=== PATIENT | female | born 1945 | race Caucasian/White ===

== ENCOUNTER 2020-06-11 02:43 | Observation (INO) | payer MEDICARE, SELFPAY ==
[2020-06-11] VITALS (11 sets, daily range): BP systolic 84–153; BP diastolic 51–85; PULSE 78–93; RESP 12–18; TEMP 36.5–37; O2SAT 95–100; BMI 36.8
--- NOTE | 2020-06-11 | ECHO_ITS ---
Patient Info Name: Amber Ordaz Age: 75 years : 1945 Gender: Female Ht: 66 in Wt: 228 lbs BSA: 2.24 m2 HR: 88 bpm BP: 125 / 51 mmHg Technical Quality: Good Exam Date: 06/11/2020 8:13 AM Exam Location: [facility] Pulmonary Exam Room: 255 Patient Status: Outpatient Admit Date: 06/11/2020 Staff Ordering Physician: Arnoldo Aviles MD Wet Machine Cutter: Teri Martinez RDCS Attending Provider: Gurdeep Forrest PA-C Referring Physician: Traci HUA; Exam Type: CA echo doppler color flow Study Info Indications - syncope Complete two-dimensional, color flow and Doppler transthoracic echocardiogram is performed. Summary 1. Left ventricular systolic function is hyperdynamic, estimated at >70%. 2. There is no increased left ventricular wall thickness. 3. The left ventricular diastolic function is grade I diastolic dysfunction. 4. Right ventricular chamber dimension is normal. 5. Right ventricular systolic function is normal. Left Ventricle Left ventricular chamber dimension is normal. Left ventricular systolic function is hyperdynamic, estimated at >70%. There is no increased left ventricular wall thickness. Left ventricular septal wall motion is normal. The left ventricular diastolic function is grade I diastolic dysfunction. Right Ventricle Right ventricular chamber dimension is normal. Right ventricular systolic function is normal. Left Atria Left atrial chamber dimension is normal. Right Atria Right atrial chamber dimension is normal. Aortic Valve The aortic valve is trileaflet. There is no aortic valve sclerosis. There is no aortic valve stenosis. There is no aortic valve regurgitation. Pulmonic Valve The pulmonic valve is normal. There is no pulmonic valve stenosis. There is no pulmonic regurgitation. Mitral Valve The mitral valve has normal leaflets. There is no mitral valve stenosis. There is no mitral valve regurgitation. Tricuspid Valve The tricuspid valve leaflets are normal. There is no significant tricuspid valve stenosis. There is trace tricuspid valve regurgitation. Pericardium/Pleural The pericardium appears normal. There is no pericardial effusion. Inferior Vena Cava Inferior vena cava is not well visualized. Aorta The prox ascending aorta size is normal. Left Ventricular Outflow Tract Name Value Normal LVOT 2D LVOT Diameter 2.0 cm LVOT Doppler LVOT Peak Gradient 5 mmHg LVOT Mean Gradient 3 mmHg LVOT VTI 22 cm LVOT VTI/AV VTI Ratio 0.7 LVOT Stroke Volume 66 ml LVOT CO 15.3 l/min LVOT CI 6.8 l/min/m2 Pulmonic Valve Name Value Normal PV Doppler PV Peak Gradient
--- NOTE | ~2020-06-11 | CT_ITS ---
EXAMINATION: CT abd pelvis lumbar w con INDICATION: Left lower quadrant pain with diarrhea TECHNIQUE: Computed tomographic images of the abdomen, pelvis, and lumbar spine were obtained after t he administration of 100 cc of Omnipaque 350 intravenous contrast. The dose-length product (DLP) was 1361.94 mGy-cm. Automated exposure control and iterative reconstruction technique were employed. COMPARISON: 05/31/2019 FINDINGS: ABDOMEN/PELVIS: Minimal dependent atelectasis is present in the lung bases. The heart size is normal. There is a moderate size hiatal hernia. The gallbladder is surgically absent. The liver, spleen, crockett creas, and adrenal glands are normal. Cysts of the kidneys measure up to 1.6 cm on the left. 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 No patholog ically enlarged abdominal or pelvic lymph nodes are identified. There is calcified atherosclerosis of the aorta and many of the other arteries. There are multiple mildly dilated loops of small bowel in the anterior and left abdomen. Right lower quadrant small bowel loops appear to be decompressed. No d efinite focal transition is identified. There is a small volume of pelvic ascites. No free intraperit zambrano gas is identified. There are umbilical and bilateral table hernias containing fat. LUMBAR SPINE: There is severe loss of intervertebral disc space height from L1-2 through L5-S1. The v ertebral body heights are maintained. No fracture is identified. Thoracolumbar dextroscoliosis is sta ble. There is severe multilevel facet osteoarthritis. IMPRESSION: 1. Dilated small bowel loops which may reflect ileus versus partial obstruction. 2. Severe lumbar spondylosis without acute findings or significant interval change. Reviewed, dictated and finalized at location A. IMPRESSION: 1. Dilated small bowel loops which may reflect ileus versus partial obstruction . 2. Severe lumbar spondylosis without acute findings or significant interval noris nge.
--- NOTE | ~2020-06-11 | US_ITS ---
EXAMINATION: US carotid duplex BI DATE: 06/11/2020 10:38 INDICATION: Near syncope TECHNIQUE: Grayscale, color Doppler, and pulsed Doppler images of the cervical carotid arteries were obtained. The degree of vessel stenosis is placed in one of the following categories: normal, <50%, 5 0-69%, >=70% but less than near-occlusion, near-occlusion, or total occlusion. Note that percent sten osis relative to normal distal artery lumen diameter is indirectly measured from velocity measurement s as described by Kevin, et al. Radiology 2003; [id number]:[id number]. COMPARISON: 10/20/2014 FINDINGS: RIGHT: The right common carotid artery (CCA) peak systolic velocity (PSV) is 71 cm/s. The right internal car otid artery (ICA) PSV is 99 cm/s. The right ICA end-diastolic velocity (EDV) is 46 cm/s. The right IC A/CCA PSV ratio is 1.4. Grayscale and color Doppler images yield an estimate of less than 50% diamete r reduction from plaque in the ICA. The external carotid artery (ECA) PSV is 49 cm/s. There is antegr keith flow in the right vertebral artery. LEFT: The left CCA PSV is 70 cm/s. The left ICA PSV is 77 cm/s. The left ICA EDV is 31 cm/s. The left ICA/C CA PSV ratio is 1.1. Grayscale and color Doppler images yield an estimate of less than 50% diameter r eduction from plaque in the ICA. The ECA PSV is 40 cm/s. There is antegrade flow in the left vertebra l artery. IMPRESSION: 1. <50% stenosis in the right internal carotid artery. 2. <50% stenosis in the left internal carotid artery. Reviewed, dictated and finalized at location A.
--- NOTE | ~2020-06-11 | XR_ITS ---
. EXAMINATION: XR UGI water soluble w sbs DATE: 06/11/2020 15:46 INDICATION: Abdominal pain. Nausea and vomiting. TECHNIQUE: The patient drank water-soluble contrast. Fluoroscopy of the esophagus, stomach, and small bowel was performed. Fluoroscopy exposure time was 0.8 minutes. Radiographs of the abdomen were obta ined. The total number of images was 343. COMPARISON: Esophagram 05/14/2018 FINDINGS: UPPER GASTROINTESTINAL SERIES: There are changes of fundoplication. There is decreased primary and secondary esophageal peristalsis. Abnormal tertiary waves are noted. The esophagus is patulous. SMALL BOWEL SERIES: There are multiple dilated loops of small bowel without focal transition point Transit time to the co humphrey was 2.5 hours. Surgical clips in the right upper quadrant are likely from cholecystectomy. Epidur al electrodes are noted. IMPRESSION: 1. Patulous esophagus with severe dysmotility. 2. Intact fundoplication. 3. Dilated small bowel without focal transition point with passage of contrast to the colon by 2.5 ho urs, consistent with adynamic ileus. Reviewed, dictated and finalized at location A. IMPRESSION: 1. Patulous esophagus with severe dysmotility. 2. Intact fundoplication. 3. Dilated small bowel without focal transition point with passage of contrast to the colon by 2.5 hours, consistent with adynamic ileus.
--- NOTE | 2020-06-11 03:03 | ED.NAVMDI ---
HPI - Nausea/Vomiting/Diarrhea General Chief complaint: Nausea/Vomiting/Diarrhea Stated complaint: n/v/d History of Present Illness HPI Narrative: She reports severe diarrhea for the past 5 days. Associated with nausea mild abdominal pain. Additionally had a syncopal episode on Saturday and felt near syncopal today. BP per EMS was low. Related Data Home Medications Medication Instructions Recorded Confirmed C,E,zinc,copper [id number] 1 cap PO DAILY 06/11/20 [Ocuvite Adult 50 Plus] citalopram 10 mg PO DAILY 06/11/20 ferrous sulfate [iron] 325 mg PO DAILY 06/11/20 indapamide 1.25 mg PO DAILY 06/11/20 losartan 100 mg PO DAILY 06/11/20 magnesium 250 mg PO DAILY 06/11/20 meloxicam 15 mg PO DAILY 06/11/20 oxybutynin chloride 5 mg PO BID 06/11/20 pravastatin 20 mg PO DAILY 06/11/20 ropinirole 1 mg PO HS 06/11/20 trazodone 50 mg PO HS 06/11/20 verapamil 240 mg PO 06/11/20 vitamin B complex [B 1 tablet PO DAILY 06/11/20 Complex-Vitamin B12] vitamin E 200 unit PO DAILY 06/11/20 Allergies Allergy/AdvReac Type Severity Reaction Status Date / Time codeine Allergy Severe Hallucinati Verified 06/11/20 02:52 ng Review of Systems Review of Systems: All systems reviewed & are unremarkable except as noted in HPI and below Constitutional: Constitutional: Denies fever(s) and Reports weakness Cardiovascular: Cardiovascular: Denies chest pain Respiratory: Respiratory: Denies dyspnea Gastrointestinal: Gastrointestinal: Reports diarrhea, Reports nausea and Denies vomiting Genitourinary: Genitourinary: Denies hematuria and Denies dysuria Musculoskeletal: Musculoskeletal: Denies back pain Neurologic: Reports dizziness, Reports syncope and Reports weakness Hematologic/Lymphatic: Hematologic/Lymphatic: Denies easy bleeding and Denies easy bruising PMFSH Past Medical History Medical History Colitis GERD (gastroesophageal reflux disease) HTN (hypertension) with goal to be determined Hyperlipidemia Irritable bowel syndrome RLS (restless legs syndrome) Spinal cord stimulator status Surgical History Surgical History History of hernia surgery Hx laparoscopic cholecystectomy Hx of abdominal hysterectomy Family History Family History Sibling Carcinoma of colon Other Diabetes mellitus Family history of kidney disease Family history of malignant neoplasm Hypertension Social History Social History Smoking status: Never smoker Alcohol intake: current Exam Const: General: healthy appearing, no acute distress and alert Orientation/consciousness: patient oriented x3 HENMT: Mouth: Yes dry mucous membranes Neck: Neck: normal visual inspection and no lymphadenopathy Resp: Effort & Inspection: normal respiratory effort Auscultation: clear to auscultation bilaterally, no rales, no rhonchi and no wheezes Cardio: Jugular venous distension: no JVD Rate: regular rate Rhythm: regular rhythm Heart sounds: no murmurs GI: Inspection: non-distended GI Palp: Yes Soft to palpation and No Tenderness to palpation present (GI) Skin: General skin exam: normal color Neuro: General: patient oriented x3, moves all extremities, no focal motor deficits and CN's II-XI intact bilaterally Speech: normal speech Extrem: General: no edema Psych: Appearance: well kempt Affect: normal affect Course Vital Signs Vital signs: Vital Signs Temperature 36.5 C 06/11/20 02:44 Pulse Rate 83 06/11/20 02:44 Respiratory Rate 16 06/11/20 02:44 Blood Pressure 84/51 L 06/11/20 02:44 Pulse Oximetry 95 06/11/20 02:44 Temperature 36.5 C 06/11/20 02:44 Pulse Rate 83 06/11/20 04:06 Respiratory Rate 16 06/11/20 04:06 Blood Pressure 103/79 06/11/20 04:06 Pulse O
[2020-06-11] MEDS: SODIUM CHLORIDE 0.9% IV 1,000 ML 999 ML IV CONT (03:12)
[2020-06-11 03:13] LABS: Basophils Absolute Auto 0.1 K/mm3 (0.0-0.1); Basophils Percent Auto 0.5 % (0.2-1.2); Eosinophils Absolute Auto 0.2 K/mm3 (0-0.3); Eosinophils Percent Auto 1.5 % (0-4.4); Hematocrit 42.1 % (37.0-47.0); Hemoglobin 13.9 g/dL (12.0-15.0); Immature Granulocyte Absolute 0.04 K/mm3 (0.00-0.031); Immature Granulocyte Percent A 0.3 % (0-0.5); Lymphocytes Absolute Auto 1.75 K/mm3 (0.9-3.2); Mean Corpuscular Hemoglobin 28.1 pg (26-34); Mean Corpuscular Volume 85.1 fl (80-100); Mean Platelet Volume 10.6 fl (7.4-10.4); Monocytes Absolute Auto 1.4 K/mm3 (0.1-0.6); Monocytes Percent Auto 11.8 % (2.6-8.5); Neutrophils Absolute Auto 8.3 K/mm3 (1.3-6.7); Neutrophils Percent Auto 70.9 % (45.5-73.1); Platelet Count Result 268 k/mm3 (150-375); Red Blood Count 4.95 M/mm3 (4.2-5.4); Red Cell Distribution Width 13.6 % (11.5-14.5); White Blood Count 11.7 K/mm3 (4.5-10.0)
[2020-06-11 03:26] LABS: Lactic Acid Reflex 1.9 mmol/L (0.7-2.1)
[2020-06-11 03:27] LABS: Alanine Aminotransferase 15 U/L (4-35); Albumin Level 4.2 g/dL (3.5-5.1); Alkaline Phosphatase 91 U/L (38-126); Aspartate Amino Transferase 25 U/L (14-36); Bilirubin,Total 0.4 mg/dL (0.2-1.3); Blood Urea Nitrogen 15 mg/dL (7-17); Calcium 9.1 mg/dL (8.4-10.2); Carbon Dioxide 22 mmol/L (22-30); Chloride 101 mmol/L (98-107); Estimated CRCL calculation 46 ml/min; Estimated Glomerular Filt Rate 48; Glucose 154 mg/dL (65-105); Lipase 36 U/L (23-300); Potassium 3.9 mmol/L (3.4-5.0); Sodium 134 mmol/L (137-145)
[2020-06-11] MEDS: LACTATED RINGERS 1,000 ML 125 ML IV CONT ×2 (04:22→13:49)
--- NOTE | 2020-06-11 04:29 | PM.IMHP ---
H&P: HPI History of Present Illness Chief complaint: diarrhea, dehydration, near syncope Narrative: This is a pleasant 75 year old female with known history of irritable bowel syndrome, GERD, HTN and RLS who presented to the hospital with a complaint that she felt like she was going to pass out tonight while sitting on the edge of her bed. She began to feel sick 5 days ago when she became bloated, constipated and nauseated. That evening she was sitting on her toilet and blacked out and woke up on the ground. Her son helped her into bed and she did not seek medical attention. The next two days she had severe wattery diarrhea which was brown in color and she had more than 10 episodes/day. She also reports having a low grade fever of 99-100.1 F on those days. Her diarrhea seemed to improve for the next two days until yesterday evening when she had two episodes of wattery diarrhea. Associated symptoms included nausea and dry heaving. She denies any bloody stools. She does report also having left lower quadrant pain and bloating yesterday. She has a history of previous colitis. She denies any recent antibiotic use. She last had a colonoscopy 2 years ago which was normal at that time. Tonight she denies any other symptoms. Routine labs obtained in the ER demonstrated mild leukocytosis. She was initially found to be hypotensive but her blood pressure has improved with a fluid bolus in the ER. No other complaints tonight. Review of Systems Review of Systems: All systems reviewed & are unremarkable except as noted in HPI and below PMFSH Past Medical History Medical History Colitis GERD (gastroesophageal reflux disease) HTN (hypertension) with goal to be determined Hyperlipidemia Irritable bowel syndrome RLS (restless legs syndrome) Spinal cord stimulator status Surgical History Surgical History History of hernia surgery Hx laparoscopic cholecystectomy Hx of abdominal hysterectomy Family History Family History Sibling Carcinoma of colon Mother Heart disease Father Heart disease Other Diabetes mellitus Family history of kidney disease Family history of malignant neoplasm Hypertension Social History Social History Smoking status: Never smoker Alcohol intake: never Substance use: never Substance use type: does not use Meds Home Medications and Allergies Home Medications Medication Instructions Recorded Confirmed Type C,E,zinc,copper [id number] 1 cap PO DAILY 06/11/20 06/11/20 History [Ocuvite Adult 50 Plus] citalopram 10 mg PO DAILY 06/11/20 06/11/20 History ferrous sulfate [iron] 325 mg PO DAILY 06/11/20 06/11/20 History indapamide 1.25 mg PO DAILY 06/11/20 06/11/20 History losartan 100 mg PO DAILY 06/11/20 06/11/20 History magnesium 250 mg PO DAILY 06/11/20 06/11/20 History meloxicam 15 mg PO DAILY 06/11/20 06/11/20 History oxybutynin chloride 5 mg PO BID 06/11/20 06/11/20 History pravastatin 20 mg PO DAILY 06/11/20 06/11/20 History ropinirole 1 mg PO HS 06/11/20 06/11/20 History trazodone 50 mg PO HS 06/11/20 06/11/20 History verapamil 240 mg PO DAILY 06/11/20 06/11/20 History vitamin B complex [B 1 tablet PO DAILY 06/11/20 06/11/20 History Complex-Vitamin B12] vitamin E 200 unit PO DAILY 06/11/20 06/11/20 History Allergies Allergy/AdvReac Type Severity Reaction Status Date / Time codeine Allergy Severe Hallucinati Verified 06/11/20 02:52 ng Vital Signs Vital Signs - 24 hr 06/11/20 02:44 06/11/20 04:06 Temperature 36.5 C Pulse Rate 83 83 Respiratory Rate 16 16 Blood Pressure 84/51 L 103/79 Pulse Oximetry 95 98 Exam Const: General: cooperative, alert and awake Nutritional Appearance: obese morbidly obese Orientation/consciousness: patien
[2020-06-11] MEDS: LOPERAMIDE HCL 2 MG CAPSULE 4 MG PO (05:13)
--- NOTE | 2020-06-11 05:23 | ADMGEN ---
This patient, Amber Ordaz, was admitted to [address] [facility]- @ 5210. Patient/family oriented to hospital policies and general routines including ID bracelet, bed and alarms, visiting hours, pain management, procedures, bathroom and other care routines, personal items, smoking policy, room service/diet, and visiting hours. Valuables list has been completed. Information on how to activate the Rapid Response Team has been discussed. Patient/Family are encouraged to report perceived risks to care and to ask questions if they do not understand what they are told or what they should do.
[2020-06-11 06:23] LABS: Add Urine Microscopic? YES; Appearance Urine Clear (Clear); Bilirubin Urine Negative (Negative); Blood Urine Negative (Negative); Color Urine Yellow (Yellow); Glucose Urine UA Negative (Negative); Hyaline Casts Urine 20-29 /lpf; Ketones Urine Negative (Negative); Leukocyte Esterase Ur Trace LEU/UL (Negative); Mucus Urine Rare /lpf; Nitrate Urine Negative (Negative); Protein Urine Negative (Negative); RBC Urine 0-2 /hpf (0-2); Specific Grav Ur 1.012 (1.001-1.035); Squamous Epithelial Cell Urine Few /hpf (Few); Urobilinogen Urine Negative mg/dL (<2.0); WBC Urine 0-3 /hpf
[2020-06-11] MEDS: PRAVASTATIN SODIUM 20 MG TABLET PO (09:12)
[2020-06-11] MEDS: CITALOPRAM HYDROBROMIDE 10 MG TABLET PO (09:12)
[2020-06-11] MEDS: FERROUS SULFATE 324 MG TABLET PO (09:12)
[2020-06-11] MEDS: VITAMIN B COMPLEX CAPSULE 1 CAP PO (09:12)
[2020-06-11] MEDS: OPTI-GEN TAB 1 TABLET PO (09:12)
[2020-06-11] MEDS: VERAPAMIL HCL ER 240 MG TABLET.ER PO (09:12)
[2020-06-11] MEDS: LOSARTAN POTASSIUM 100 MG TABLET PO (09:12)
[2020-06-11] MEDS: OXYBUTYNIN CHLORIDE 5 MG TABLET PO (09:12)
[2020-06-11] MEDS: VITAMIN E 100 UNIT CAPSULE 200 UNIT PO (09:13)
[2020-06-11] MEDS: INDAPAMIDE 1.25 MG TABLET PO (09:30)
--- NOTE | 2020-06-11 11:59 | PM.IMPN ---
Progress Note: A&P Assessment and Plan (1) Near syncope: Code(s): R55 - Syncope and collapse Status: Acute Assessment and Plan: Near Syncope and recent syncopal event may be secondary to hypotension. TSH 6.41, T4 pending. Carotid doppler unremarkable. Echo pending. BP has improved and patient feels slightly better today. Tele thus far shows sinus rhythm, episode of sinus tachycardia >120, artifact note; no other ectopy; asymptomatic. Continue IVF Fall precautions incident commander closely (2) Partial small bowel obstruction: Code(s): K56.600 - Partial intestinal obstruction, unspecified as to cause Status: Acute Assessment and Plan: partial SBO vs ileus as evident on CT abd/pelvis this morning. Patient states she is still nausea, and no BMs or flatus since yesterday morning, some left abdominal pain. She has had multiple abdominal surgeries in the past (lap makenna, hernia repair in 1980s). Will order UGI water soluble sbs Pending results, consider NGT and consult to General Surgery for further evaluation/management NPO status for now Monitor If return of bowel function, will slowly advance her diet (3) Diarrhea: Code(s): R19.7 - Diarrhea, unspecified Status: Acute Assessment and Plan: The patient was treated in the ER with imodium. Possibly related to ileus vs partial sbo. see above a/p (4) Hypotension: Qualifiers: Hypotension type: unspecified hypotension type Qualified Code(s): I95.9 - Hypotension, unspecified Code(s): I95.9 - Hypotension, unspecified Status: Resolved Assessment and Plan: This has improved with IVF Continue IV fluids while NPO. monitor blood pressure closely. (5) Leukocytosis: Qualifiers: Leukocytosis type: unspecified Qualified Code(s): D72.829 - Elevated white blood cell count, unspecified Code(s): D72.829 - Elevated white blood cell count, unspecified Status: Acute Assessment and Plan: Mildly elevated. Likely reactive. No evidence of acute infection at this time; afebrile Monitor closely CBC tomorrow (6) Dehydration: Code(s): E86.0 - Dehydration Status: Acute Assessment and Plan: Lab suggesting dehydration. Patient has had several recent episodes of diarrhea, n/v. Likely contributing to hypotension Continue IV fluid hydration. Monitor urine output and vital signs. (7) GERD (gastroesophageal reflux disease): Qualifiers: Esophagitis presence: esophagitis presence not specified Qualified Code(s): K21.9 - Gastro-esophageal reflux disease without esophagitis Code(s): K21.9 - Gastro-esophageal reflux disease without esophagitis Status: Acute Assessment and Plan: No acute issues at this time Monitor (8) RLS (restless legs syndrome): Code(s): G25.81 - Restless legs syndrome Status: Chronic Assessment and Plan: Resume ropinirole once off NPO status (9) Hyperlipidemia: Qualifiers: Hyperlipidemia type: unspecified Qualified Code(s): E78.5 - Hyperlipidemia, unspecified Code(s): E78.5 - Hyperlipidemia, unspecified Status: Chronic Assessment and Plan: Resume pravastatin once off NPO status (10) HTN (hypertension) with goal to be determined: Code(s): I10 - Essential (primary) hypertension Status: Chronic Assessment and Plan: BP has improved with IVF Monitor blood pressure. Hold home antihypertensives for now as she has been hypotensive. Likely resume home meds when BP continues to improve and off NPO sta
[2020-06-11 12:23] LABS: Free T4 Free Thyroxine Reflex 1.13 ng/dL (0.78-2.19)
[2020-06-11 13:16] LABS: Total Triiodothyronine (T3) 1.09 NG/ML (0.97-1.69)
[2020-06-12] VITALS: PULSE 74
[2020-06-12 04:00] VITALS: PULSE 62
[2020-06-12 05:18] LABS: Basophils Percent Auto 0.6 % (0.2-1.2); Eosinophils Absolute Auto 0.3 K/mm3 (0-0.3); Eosinophils Percent Auto 5.1 % (0-4.4); Hematocrit 36.6 % (37.0-47.0); Immature Granulocyte Absolute 0.01 K/mm3 (0.00-0.031); Immature Granulocyte Percent A 0.2 % (0-0.5); Lymphocytes Percent Auto 37.4 % (18.3-44.2); Mean Corpuscular HGB Conc 32.8 g/dl (32-36); Mean Corpuscular Hemoglobin 28.1 pg (26-34); Mean Corpuscular Volume 85.7 fl (80-100); Mean Platelet Volume 10.3 fl (7.4-10.4); Monocytes Absolute Auto 0.6 K/mm3 (0.1-0.6); Neutrophils Absolute Auto 2.3 K/mm3 (1.3-6.7); Neutrophils Percent Auto 45.7 % (45.5-73.1); Platelet Count Result 241 k/mm3 (150-375); Red Blood Count 4.27 M/mm3 (4.2-5.4); Red Cell Distribution Width 13.8 % (11.5-14.5); White Blood Count 5.1 K/mm3 (4.5-10.0)
[2020-06-12 05:35] LABS: Blood Urea Nitrogen 11 mg/dL (7-17); Calcium 8.9 mg/dL (8.4-10.2); Carbon Dioxide 25 mmol/L (22-30); Chloride 107 mmol/L (98-107); Estimated CRCL calculation 73 ml/min; Estimated Glomerular Filt Rate > 60; Glucose 91 mg/dL (65-105); Magnesium 1.6 mg/dL (1.6-2.3); Potassium 3.9 mmol/L (3.4-5.0); Sodium 137 mmol/L (137-145)
[2020-06-12 05:47] VITALS: BP 127/61; PULSE 64; RESP 12; TEMP 36.9; O2SAT 95
[2020-06-12] MEDS: LACTATED RINGERS 1,000 ML 75 ML IV CONT (05:50)
[2020-06-12 08:00] VITALS: PULSE 78
--- NOTE | 2020-06-12 08:34 | PM.IMPN ---
Progress Note: A&P Assessment and Plan (1) Adynamic ileus: Code(s): K56.0 - Paralytic ileus Status: Acute Assessment and Plan: Possibly medication induced. UGI SBS yesterday showed adynamic ileus; patulous esophagus noted - patient follows Dr. Jeff and has what sounds like balloon dilations in the past. partial SBO vs ileus as evident on CT abd/pelvis yesterday morning. No n/v today; abdominal pain has improved this morning; she has had BMs last night from UGI series. She is willing to advance her diet today Slowly advance diet. will start with CLD this morning and afternoon; if tolerating, then advance to FLD this evening. If pain, n/v worsen, then will hold diet and repeat imaging Consider General Surgery consult if not improving/symptoms worsen Will hold verapamil, oxybutinin. Will refrain from imodium as well Monitor Encourage ambulation, walk the halls (2) Near syncope: Code(s): R55 - Syncope and collapse Status: Acute Assessment and Plan: Near Syncope and recent syncopal event may be secondary to hypotension. TSH 6.41, T4 and T3 WNL. Carotid doppler unremarkable. Echo grossly unremarkable for etiology of symptoms. BP has improved and patient feels slightly better again today. Tele thus far shows sinus rhythm, episodes of sinus tachycardia >120, artifact noted; no other ectopy; asymptomatic. Most likely due to hypotension from volume depletion Will stop IVF Fall precautions D/c tele (3) Diarrhea: Code(s): R19.7 - Diarrhea, unspecified Status: Acute Assessment and Plan: The patient was treated in the ER with imodium, possibly causing ileus? see above a/p (4) Hypotension: Qualifiers: Hypotension type: unspecified hypotension type Qualified Code(s): I95.9 - Hypotension, unspecified Code(s): I95.9 - Hypotension, unspecified Status: Resolved Assessment and Plan: This has improved with IVF d/c IVF monitor blood pressure closely. (5) Leukocytosis: Qualifiers: Leukocytosis type: unspecified Qualified Code(s): D72.829 - Elevated white blood cell count, unspecified Code(s): D72.829 - Elevated white blood cell count, unspecified Status: Resolved Assessment and Plan: Resolved. Likely reactive. No evidence of acute infection at this time; afebrile Monitor closely CBC tomorrow (6) Dehydration: Code(s): E86.0 - Dehydration Status: Acute Assessment and Plan: Lab suggesting dehydration. Patient has had several recent episodes of diarrhea, n/v. Likely contributing to hypotension Encourage PO intake Monitor urine output and vital signs. (7) GERD (gastroesophageal reflux disease): Qualifiers: Esophagitis presence: esophagitis presence not specified Qualified Code(s): K21.9 - Gastro-esophageal reflux disease without esophagitis Code(s): K21.9 - Gastro-esophageal reflux disease without esophagitis Status: Acute Assessment and Plan: No acute issues at this time Monitor (8) RLS (restless legs syndrome): Code(s): G25.81 - Restless legs syndrome Status: Chronic Assessment and Plan: Resume ropinirole (9) Hyperlipidemia: Qualifiers: Hyperlipidemia type: unspecified Qualified Code(s): E78.5 - Hyperlipidemia, unspecified Code(s): E78.5 - Hyperlipidemia, unspecified Status: Chronic Assessment and Plan: Resume pravastatin (10) HTN (hypertension) with goal to be determined: Code(s): I10 - Essential (primary) hypertension Status: Chronic Assessment and
[2020-06-12] MEDS: FERROUS SULFATE 324 MG TABLET PO (09:06)
[2020-06-12] MEDS: CITALOPRAM HYDROBROMIDE 10 MG TABLET PO (09:06)
[2020-06-12] MEDS: INDAPAMIDE 1.25 MG TABLET PO (09:07)
[2020-06-12] MEDS: OPTI-GEN TAB 1 TABLET PO (09:07)
[2020-06-12] MEDS: LOSARTAN POTASSIUM 100 MG TABLET PO (09:07)
[2020-06-12] MEDS: VITAMIN B COMPLEX CAPSULE 1 CAP PO (09:08)
[2020-06-12] MEDS: VITAMIN E 100 UNIT CAPSULE 200 UNIT PO (09:08)
[2020-06-12] MEDS: PRAVASTATIN SODIUM 20 MG TABLET PO (09:08)
[2020-06-12] MEDS: ACETAMINOPHEN 325 MG TABLET 650 MG PO (10:42)
--- NOTE | 2020-06-12 12:46 | PCPTNOTE ---
PT/OR orders received for this patient....evaluated by OT and found to be INDEP with functional activities...spoke with MORALES Forrest, and received PT D/C orders
[2020-06-12 14:00] VITALS: BP 125/63; PULSE 76; RESP 18; TEMP 36.1; O2SAT 99
[2020-06-12 20:27] VITALS: BP 141/77; PULSE 69; RESP 12; TEMP 36.6; O2SAT 98
[2020-06-12] MEDS: rOPINIRole HCL 1 MG TABLET PO (20:28)
[2020-06-12] MEDS: traZODone HCL 50 MG TABLET PO (22:40)
[2020-06-13] MEDS: ACETAMINOPHEN 325 MG TABLET 650 MG PO ×2 (05:09→12:56)
[2020-06-13 05:28] VITALS: BP 140/67; PULSE 64; RESP 12; TEMP 36.7; O2SAT 100
[2020-06-13 05:47] LABS: Blood Urea Nitrogen 9 mg/dL (7-17); Calcium 8.9 mg/dL (8.4-10.2); Carbon Dioxide 26 mmol/L (22-30); Chloride 106 mmol/L (98-107); Estimated CRCL calculation 73 ml/min; Estimated Glomerular Filt Rate > 60; Glucose 93 mg/dL (65-105); Magnesium 1.6 mg/dL (1.6-2.3); Potassium 4.1 mmol/L (3.4-5.0); Sodium 138 mmol/L (137-145)
[2020-06-13] MEDS: CITALOPRAM HYDROBROMIDE 10 MG TABLET PO (08:18)
[2020-06-13] MEDS: LOSARTAN POTASSIUM 100 MG TABLET PO (08:19)
[2020-06-13] MEDS: INDAPAMIDE 1.25 MG TABLET PO (08:19)
[2020-06-13] MEDS: OPTI-GEN TAB 1 TABLET PO (08:19)
[2020-06-13] MEDS: FERROUS SULFATE 324 MG TABLET PO (08:19)
[2020-06-13] MEDS: VITAMIN B COMPLEX CAPSULE 1 CAP PO (08:19)
[2020-06-13] MEDS: PRAVASTATIN SODIUM 20 MG TABLET PO (08:19)
[2020-06-13] MEDS: VITAMIN E 100 UNIT CAPSULE 200 UNIT PO (08:19)
[2020-06-13 14:00] VITALS: BP 124/64; PULSE 63; RESP 16; TEMP 36.9; O2SAT 100
--- NOTE | 2020-06-13 14:32 | PM.DS ---
DS: Admitting Diagnosis Admitting Diagnosis Admitting Diagnosis: Syncope and collapse DS: Discharge Diagnosis Discharge Diagnosis (1) Adynamic ileus: Code(s): K56.0 - Paralytic ileus Status: Acute Assessment and Plan: CT a/p showed dilated small bowel loops which may reflect ileus vs partial obstruction. She had a UGI series on 06/11 which showed adynamic ileus; patulous esophagus noted, for which patient follows with Dr. Jeff and has had balloon dilations in the past. Etiology is unclear but medication induced ileus is a possibility. She received immodium in the ED and she is on verapamil and oxybutynin, all potential contributing factors. Her verapamil and oxybutynin were held during her stay and she will continue to hold until PCP follow up. No further immodium was given. She was passing gas and having bowel movements. She was able to advance from CLD to soft diet and tolerated well. She had no further nausea or vomiting. She was encouraged to ambulate and walk the halls. (2) Near syncope: Code(s): R55 - Syncope and collapse Status: Acute Assessment and Plan: Near syncope and recent syncopal event may be secondary to hypotension. TSH 6.41, T4 and T3 WNL. Carotid doppler unremarkable. Echo grossly unremarkable for etiology of symptoms. BP has improved and patientfelt better. Telemetry was reviewed and showed sinus rhythm, episodes of sinus tachycardia >120, artifact noted; no other ectopy; and she remained asymptomatic.. Most likely due to hypotension from volume depletion. She was rehydrated with IV fluids and placed on fall precautions. We discussed monitoring her BP at home and using precautions to avoid falls. (3) Diarrhea: Code(s): R19.7 - Diarrhea, unspecified Status: Acute Assessment and Plan: Resolved. She was given one time dose of immodium as noted above which was then avoided due to ileus. (4) Hypotension: Qualifiers: Hypotension type: unspecified hypotension type Qualified Code(s): I95.9 - Hypotension, unspecified Code(s): I95.9 - Hypotension, unspecified Status: Resolved Assessment and Plan: This improved with IVF. Likely etiology for syncope as above. Recommend monitoring her BP at home. Verapamil was held. (5) Leukocytosis: Qualifiers: Leukocytosis type: unspecified Qualified Code(s): D72.829 - Elevated white blood cell count, unspecified Code(s): D72.829 - Elevated white blood cell count, unspecified Status: Resolved Assessment and Plan: Resolved, likely reactive. No evidence of acute infection and she remained afebrile. (6) Dehydration: Code(s): E86.0 - Dehydration Status: Acute Assessment and Plan: Labs suggesting dehydration, possibly due to recent episodes of diarrhea, nausea, and vomiting. Likely contributing to hypotension. She was rehydrated with IV fluids and showed improvement. (7) GERD (gastroesophageal reflux disease): Qualifiers: Esophagitis presence: esophagitis presence not specified Qualified Code(s): K21.9 - Gastro-esophageal reflux disease without esophagitis Code(s): K21.9 - Gastro-esophageal reflux disease without esophagitis Status: Acute Assessment and Plan: No acute issues. (8) RLS (restless legs syndrome): Code(s): G25.81 - Restless legs syndrome Status: Chronic Assessment and Plan: Stable. Continue ropinirole (9) Hyperlipidemia: Qualifiers: Hyperlipidemia type: unspecified Qualified Code(s): E78.5 - Hyperlipidemia, unspecified Code(s): E78.5 - Hyperlipidemia, unspecified Status: Chronic Assessment and Plan: Continue pravastatin (10) HTN (hypertension) with goal to be determined: Code(s): I10 - Essential (primary) hypertension Status: Chronic Assessment and Plan: History of HTN on several antihyperten
== END 2020-06-13 14:55 | disposition home or self-care (01) ==
LOC: ANHED 04:01 → ANH2MED 04:10
PROVIDERS: Physician Assistant; Admitting Provider Family Medicine; Emergency Provider Emergency Medicine; PCP Family Medicine; Visit Provider Physician Assistant
DX: K56.0 Paralytic ileus (principal); R55 Syncope and collapse; I95.9 Hypotension, unspecified; D72.829 Elevated white blood cell count, unspecified; E86.0 Dehydration; K21.9 Gastro-esophageal reflux disease without esophagitis; G25.81 Restless legs syndrome; E78.5 Hyperlipidemia, unspecified; I10 Essential (primary) hypertension; K58.9 Irritable bowel syndrome, unspecified
CPT/HCPCS: 36415; 72132; 74177; 74240; 74248; 80048; 80053; 81001; 83605; 83690; 83735; 84439; 84443; 84480; 85025; 93306; 93880; 96361; 96365; 96375; 97165; 97535; 99285; A9270; G0378; J0131; J2060; J7030; J7120; Q9967

== ENCOUNTER 2020-09-22 09:31 | Outpatient (CLI) | payer MEDICARE, SELFPAY ==
--- NOTE | ~2020-09-22 | MM_ITS ---
EXAMINATION: MM screening [place] BI w carolyn HISTORY: Screening mammogram TECHNIQUE: Craniocaudal and mediolateral oblique 3-D tomosynthesis images were obtained and synthetic 2-D images were generated. CAD analysis was submitted and interpreted. COMPARISON: 05/08/2019, 05/06/2018, 04/19/2016 bilateral digital screening mammogram examinations BREAST PARENCHYMAL COMPOSITION: The breasts are almost entirely fatty. FINDINGS: There is no evidence of suspicious mass, calcification, or architectural distortion to sugg est malignancy in either breast. There has been no suspicious interval change. IMPRESSION: 1. No mammographic evidence of malignancy. 2. Recommend routine screening mammography in one year. BI-RADS Category 1: Negative Reviewed, dictated and finalized at location A.
== END 2020-09-22 09:32 | disposition home or self-care (01) ==
LOC: ANHIMG 09:33
PROVIDERS: PCP Family Medicine; Visit Provider Family Medicine
DX: Z12.31 Encounter for screening mammogram for malignant neoplasm of breast (principal)
CPT/HCPCS: 77063; 77067

== ENCOUNTER → 2021-08-16 12:37 | Outpatient (CLI) | payer MEDICARE, SELFPAY ==
--- NOTE | ~2021-08-16 | DEXA_ITS ---
Bone Density Report Name: Amber Ordaz Age: 76 Sex: Female Ethnicity: White Date of : 1945 Indication: postmenopausal; screening for osteoporosis; parental hip fracture; height loss; inflammatory bowel disease; hysterectomy; Referring Provider: Steff Coleman Study: Bone densitometry was performed. Exam Date: August 16, 2021 Accession number: [id number] There is hypertrophic degenerative change of the lumbar spine, which results in higher than expected spine bone mineral density measurements. These spine BMD and T score and Z score measurements are not reflective of the patient's true general bone mineral density. Bone Density: Region BMD T-score Z-score Classification AP Spine (L2, L3, L4) 1.243 1.5 4.1 Normal Femoral Neck (Left) 0.583 -2.4 -0.3 Osteopenia Total Hip (Left) 0.927 -0.1 1.7 Normal Femoral Neck (Right) 0.654 -1.8 0.4 Osteopenia Total Hip (Right) 0.868 -0.6 1.3 Normal Total Hip Mean 0.898 -0.4 1.5 Normal World Health Organization criteria for BMD impression classify patients as: Normal (T-score at or above -1.0), Osteopenia (T-score between -1.0 and -2.5), or Osteoporosis (T-score at or below -2.5). 10-year Fracture Risk(1): Major Osteoporotic Fracture 26% Hip Fracture 16% Reported Risk Factors: [place] (), Neck BMD=0.583, BMI=40.8, parental fracture (1) FRAX(R) Version 3.08. Fracture probability calculated for an untreated patient. Fracture probability may be lower if the patient has received treatment. Previous Exams: Region Exam Age BMD T-score BMD Change BMD Change Date g/cm2 vs Baseline vs Previous AP Spine(L2, L3, L4) 08/16/2021 76 1.243 1.5 0.213 0.118* 05/29/2018 73 1.124 0.4 0.094 0.161* 08/09/2010 65 0.964 -1.0 -0.067 -0.125* 01/01/2007 61 1.089 0.1 0.059 0.059 10/13/2003 58 1.030 -0.4 Total Hip(Left) 08/16/2021 76 0.927 -0.1 -0.042 0.047* 05/29/2018 73 0.880 -0.5 -0.089 -0.131* 08/09/2010 65 1.012 0.6 0.042 -0.081* 01/01/2007 61 1.093 1.2 0.123 0.123 10/13/2003 58 0.969 0.2 Total Hip(Right) 08/16/2021 76 0.868 -0.6 -0.103 -0.056* 05/29/2018 73 0.924 -0.1 -0.047 -0.042* 08/09/2010 65 0.966 0.2 -0.005 -0.117* 01/01/2007 61 1.083 1.2 0.112 0.112 10/13/2003 58 0.971 0.2 *Denotes significance at 95% confidence level, LSC for AP Spine = 0
== END ==
PROVIDERS: PCP Family Medicine; Visit Provider Physician Assistant
DX: Z78.0 Asymptomatic menopausal state (principal); M85.851 Other specified disorders of bone density and structure, right thigh; M85.852 Other specified disorders of bone density and structure, left thigh
CPT/HCPCS: 77080

== ENCOUNTER 2021-10-24 14:38 | Outpatient (CLI) | payer MEDICARE, SELFPAY ==
--- NOTE | ~2021-10-24 | MM_ITS ---
EXAMINATION: MM screening [place] BI w carolyn HISTORY: Screening mammogram TECHNIQUE: Craniocaudal and mediolateral oblique 3-D tomosynthesis images were obtained and synthetic 2-D images were generated. CAD analysis was submitted and interpreted. COMPARISON: 09/22/2020, 05/08/2019, 05/06/2018 bilateral screening mammogram examinations BREAST PARENCHYMAL COMPOSITION: The breasts are almost entirely fatty. FINDINGS: There is no evidence of suspicious mass, calcification, or architectural distortion to sugg est malignancy in either breast. There has been no suspicious interval change. IMPRESSION: 1. No mammographic evidence of malignancy. 2. Recommend routine screening mammography in one year. BI-RADS Category 1: Negative Reviewed, dictated and finalized at location A. DDED SYSTEMS ENGINEER
== END 2021-10-24 14:39 | disposition home or self-care (01) ==
LOC: ANHIMG 14:40
PROVIDERS: PCP Family Medicine; Visit Provider Physician Assistant
DX: Z12.31 Encounter for screening mammogram for malignant neoplasm of breast (principal)
CPT/HCPCS: 77063; 77067

== ENCOUNTER 2023-07-08 12:47 | Outpatient (CLI) | payer MEDICARE, SELFPAY ==
--- NOTE | ~2023-07-08 | CT_ITS ---
EXAMINATION: CT cervical spine wo con DATE: 07/08/2023 13:01 INDICATION: Cervical radiculopathy. TECHNIQUE: Computed tomography (CT) of the cervical spine was performed without intravenous contrast. Automated exposure control and iterative reconstruction technique were employed. The dose-length pro duct was 284.23 mGy-cm. COMPARISON: None FINDINGS: There is 6 degrees dextrocurvature of cervical spine. There is 2 mm anterolisthesis of C3 o n C4 and C4 on C5. Vertebral body heights are normal. There is severely decreased disc height from C3 -C4 through C6-C7. The following disc levels are specifically discussed: C2-C3: There is no uncovertebral joint osteoarthritis. There is mild bilateral facet joint osteoarthr itis. There is no neural foraminal stenosis. There is no central canal stenosis. C3-C4: There is mild right and severe left uncovertebral joint osteoarthritis. There is moderate righ t and severe left facet joint osteoarthritis. There is mild left neural foraminal stenosis. There is mild central canal stenosis. C4-C5: There is severe bilateral uncovertebral joint osteoarthritis. There is mild right and severe l eft facet joint osteoarthritis. There is mild bilateral neural foraminal stenosis. There is mild cent ral canal stenosis. C5-C6: There is severe bilateral uncovertebral joint osteoarthritis. There is mild bilateral facet ming int osteoarthritis. There is mild bilateral neural foraminal stenosis. There is mild central canal st enosis. C6-C7: There is severe bilateral uncovertebral joint osteoarthritis. There is severe bilateral facet joint osteoarthritis. There is mild bilateral neural foraminal stenosis. There is mild central canal stenosis. C7-T1: There is no uncovertebral joint osteoarthritis. There is severe bilateral facet joint osteoart hritis. There is mild bilateral neural foraminal stenosis. There is no central canal stenosis. IMPRESSION: 1. Severe cervical spondylosis. Reviewed, dictated and finalized at location A.
== END 2023-07-08 12:48 ==
LOC: MICIMG 12:49
PROVIDERS: PCP Family Medicine; Visit Provider Physical Medicine & Rehabilitation Pain Medicine
DX: M54.12 Radiculopathy, cervical region (principal); M43.02 Spondylolysis, cervical region
CPT/HCPCS: 72125

== ENCOUNTER 2023-09-04 13:40 | Emergency (ER) | payer MEDICARE, SELFPAY ==
--- NOTE | ~2023-09-04 | XR_ITS ---
EXAMINATION: XR ankle LT min 3V DATE: 09/04/2023 14:23 INDICATION: Left ankle pain. Fall. TECHNIQUE: 4 views of left ankle were obtained. COMPARISON: None. FINDINGS: Bone alignment is normal. No fracture. There is mild midfoot osteoarthrosis. There is heter otopic ossification distal to lateral malleolus. There are enthesophytes at the posterior and plantar aspects of calcaneal tuberosity. Ankle soft tissue swelling is noted. IMPRESSION: 1. No acute fracture. Reviewed, dictated and finalized at location A. IMPRESSION: 1. No acute fracture.
--- NOTE | ~2023-09-04 | XR_ITS ---
EXAMINATION: XR wrist LT min 3V DATE: 09/04/2023 14:24 INDICATION: Left wrist pain. Fall. TECHNIQUE: 4 views of left wrist were obtained. COMPARISON: None. FINDINGS: Bone alignment is normal. No fracture. There is mild osteoarthritis of first carpometacarpa l joint. IMPRESSION: 1. Mild osteoarthritis of first carpometacarpal joint. Reviewed, dictated and finalized at location A.
[2023-09-04 13:49] VITALS: BP 148/89; PULSE 87; RESP 18; TEMP 36.2; O2SAT 96
--- NOTE | 2023-09-04 14:39 | ED.LOWEXIN ---
HPI - Extremity Injury (Lower) General Chief Complaint: Extremity Injury, Lower Stated Complaint: Lt Ankle,Foot,and Wrist Pain Due To Fall Time Seen by Provider: 09/04/23 14:07 Source: patient, family (Son) and RN notes reviewed Mode of arrival: ambulatory (With cane) Limitations: no limitations History of Present Illness HPI Narrative: Patient presents today with left ankle and wrist pain after she fell yesterday getting into her car with some groceries. Denies numbness or tingling in her extremities. She is up-to-date on her tetanus vaccine. She currently rates her pain 06/03 and has been taking Tylenol with some relief. Related Data Home Medications Medication Instructions Recorded Confirmed vit C,E,zinc,copper-[id number] 250 1 cap PO DAILY 06/11/20 09/04/23 mg-lutein 5 mg-zeaxanthin 1 mg capsule (Ocuvite Adult 50 Plus) vitamin B complex (B 1 tablet PO DAILY 06/11/20 09/04/23 Complex-Vitamin B12 tablet) cholecalciferol (vitamin D3) 50 50 mcg PO DAILY 02/07/23 09/04/23 mcg (2,000 unit) capsule citalopram 10 mg tablet 20 mg PO DAILY 06/19/23 09/04/23 Allergies Allergy/AdvReac Type Severity Reaction Status Date / Time codeine Allergy Severe Hallucinati Verified 09/04/23 13:44 ng Review of Systems Review of Systems: CONSTITUTIONAL: Denies body aches, fever, chills, or sweats. EYES: Denies visual changes, redness, or discharge. ENT: Denies rhinorrhea, congestion, sore throat, or otalgia. CARDIOVASCULAR: Denies chest pain, palpitations, or edema. RESPIRATORY: Denies cough or dyspnea. GASTROINTESTINAL: Denies abdominal pain, nausea, vomiting, or diarrhea. GENITOURINARY: Denies dysuria or hematuria. SKIN: Denies rash, itching, or wounds.+ abrasion to left wrist MUSCULOSKELETAL: Denies back pain, or myalgia.+ left ankle and wrist pain NEUROLOGIC: Denies headache, numbness, tingling, or weakness. PSYCH: Denies depression or anxiety. [facility] Past Medical History Medical History Asthma Atherosclerosis of aorta Eczema Generalized osteoarthrosis, involving multiple sites GERD (gastroesophageal reflux disease) Hypertension Major depressive disorder, recurrent, in partial remission Occlusion and stenosis of bilateral carotid arteries Other intervertebral disc degeneration, lumbar region Pure hypercholesterolemia, unspecified RLS (restless legs syndrome) Urge incontinence Surgical History Surgical History H/O: hysterectomy 1978 History of breast biopsy 1985 History of hernia surgery 1980 History of lumbar discectomy 05/2008 History of [place] fundoplication laparoscopic hiatal hernia repair and fundoplication 02/2018 History of shoulder surgery right 11/2010 History of total left knee replacement 11/21/2018 History of total right knee replacement 01/2012 Hx laparoscopic cholecystectomy 08/2005 Hx of spinal surgery spinal leak repair 05/2008 Family History Family History Sibling Carcinoma of colon Mother Heart disease Father Heart disease Other Diabetes mellitus Family history of kidney disease Family history of malignant neoplasm Hypertension Social History Social History Smoking status: Never smoker Alcohol intake: never Substance use: never Substance use type: does not use Lack of Transportation: No Lack of Food: Never True Current Housing: I Have Housing Concerned About Future Housing: No Difficulty Paying Gas/Electric Bills: No Difficulty Paying for Meds: No Currently Unemployed: No Education: High School Diploma/GED Living arrangements: with family Occupation/Education: retired Gender identity (if verbalized by the patient): Female Sexual Orientation (if Verbalized by the Patient): Adi
== END 2023-09-04 14:45 | disposition home or self-care (01) ==
PROVIDERS: Emergency Provider Nurse Practitioner; PCP Family Medicine
DX: S93.402A Sprain of unspecified ligament of left ankle, initial encounter (principal); S63.502A Unspecified sprain of left wrist, initial encounter; S61.512A Laceration without foreign body of left wrist, initial encounter; I10 Essential (primary) hypertension; Z79.899 Other long term (current) drug therapy; W19.XXXA Unspecified fall, initial encounter
CPT/HCPCS: 73110; 73610; 99214; G0463

== ENCOUNTER 2023-09-20 11:08 | Outpatient (CLI) | payer MEDICARE, SELFPAY ==
--- NOTE | ~2023-09-20 | MM_ITS ---
EXAMINATION: MM diagnostic clinton LT w carolyn HISTORY: Lateral left breast pain TECHNIQUE: ML, MLO and CC 3-D tomosynthesis images of the left breast were performed and synthetic 2- D images were generated. CAD analysis was submitted and interpreted. COMPARISON: 10/24/2021, 09/22/2020, 05/08/2019 bilateral screening mammogram examinations BREAST PARENCHYMAL COMPOSITION: The breasts are almost entirely fatty. FINDINGS: No suspicious mass or architectural distortion, malignant calcification, skin thickening or retraction or significant new or developing density is detected. IMPRESSION: 1. No mammographic evidence of malignancy of the left breast 2. Routine annual mammographic screening is recommended BI-RADS Category 1: Negative Reviewed, dictated and finalized at location A.
== END 2023-09-20 11:09 | disposition home or self-care (01) ==
LOC: ANHIMG 11:09
PROVIDERS: PCP Family Medicine; Visit Provider Family Medicine
DX: N64.4 Mastodynia (principal)
CPT/HCPCS: 77061; 77065; G0279

== ENCOUNTER 2023-10-04 12:59 | Observation (INO) | payer MEDICARE, SELFPAY ==
[2023-10-04] VITALS (13 sets, daily range): BP systolic 110–158; BP diastolic 56–86; PULSE 60–113; RESP 12–19; TEMP 35.7–36.7; O2SAT 95–100; BMI 36.4
--- NOTE | ~2023-10-04 | CT_ITS ---
EXAMINATION: CTA chest abdomen pelvis DATE: 10/04/2023 14:21 INDICATION: Chest and back pain TECHNIQUE: Computed tomographic angiography (CTA) of the chest, abdomen, and pelvis was performed wit h 100 mL Omnipque-350 intravenous contrast. Maximum intensity projection 3D-reconstructions of the ao rta and other arteries were constructed by the technologist on a separate workstation. The dose-lengt h product (DLP) was 1780.69 mGy-cm. Automated exposure control and iterative reconstruction technique were employed. COMPARISON: 06/11/2020 FINDINGS: CHEST CTA: No aneurysm or dissection. There is mild dependent atelectasis. No pathologically enlarged thoracic l ymph nodes are identified. The heart size is normal. No pleural effusion or pneumothorax. There is a moderate-sized sliding hiatal hernia. There is moderate thoracic spondylosis. ABDOMEN AND PELVIS CTA: No aneurysm or dissection. There is calcified atherosclerosis of the aorta and many of the other catherine robert. The celiac axis, superior mesenteric artery, and inferior mesenteric artery are normal at their origins. There are single renal arteries. There are changes of cholecystectomy. The liver, spleen, p ancreas, and adrenal glands are normal. Cysts of the kidneys are unremarkable. There is a 1.4 cm fat attenuation mass of the left kidney, consistent with a myelolipoma. No pathologically enlarged abdomi nal or pelvic lymph nodes are identified. No free intraperitoneal gas or evidence of bowel obstructio n. There is atrophy of the left hip adductors. There is a relatively abrupt change in caliber of the colon at the splenic flexure. There is severe lumbar spondylosis. IMPRESSION: 1. No aneurysm or dissection of the aorta. 2. Moderate-sized sliding hernia. 3. Relatively abrupt caliber change of the colon at the splenic flexure. Recommend correlation with c olonoscopy history. Reviewed, dictated and finalized at location B. ORIAN RESEARCH ASSISTANT IMPRESSION: 1. No aneurysm or dissection of the aorta. 2. Moderate-sized sliding hernia. 3. Relatively abrupt caliber change of the colon at the splenic flexure. Recomm end correlation with colonoscopy history.
--- NOTE | ~2023-10-04 | NM_ITS ---
EXAMINATION: NM dung stress w perfusion DATE: 10/07/2023 12:45 INDICATION: Chest pain. TECHNIQUE: Rest images were obtained following intravenous administration of 9 mCi Tc99m tetrofosmin (Myoview). The patient was infused intravenously with Lexiscan (regadenoson). Then, 28.3 mCi Tc99m te trofosmin (Myoview) was administered intravenously, and stress images were obtained. Data was reconst ructed into short axis and horizontal and vertical long axis SPECT images. Gated SPECT images were al so obtained. COMPARISON: Chest CT 10/04/2023 FINDINGS: There is no definite reversible or fixed perfusion abnormality to suggest ischemia or infar ction. There is no segmental wall motion abnormality. Left ventricular ejection fraction measures > 70%. IMPRESSION: 1. No definite ischemia or infarct. 2. Normal left ventricular ejection fraction measuring >70%. Reviewed, dictated and finalized at location A. [employer] STATISTICAL PROGRAMMING
--- NOTE | 2023-10-04 13:05 | ECG_ITS ---
Measurements Intervals [place] Rate: 78 P: 55 UT: 88 QRS: -9 QRSD: 97 T: 14 QT: 366 QTc: 418 Interpretive Statements SINUS RHYTHM VOLTAGE CRITERIA FOR LVH BORDERLINE T WAVE ABNORMALITY- INFERIOR LEADS BASELINE ARTIFACT- I, II, III, AVR, AVL, AVF, V3-V6 BORDERLINE ECG COMPARED TO ECG 06/09/2019 22:49:43 LEFT VENTRICULAR HYPERTROPHY NOW PRESENT Electronically Signed On 10-04-2023 13:29:04 COMMERCIAL TELLER by Peterson Mcginnis D.O.
--- NOTE | 2023-10-04 13:24 | ED.NAVMDI ---
HPI - Nausea/Vomiting/Diarrhea General Chief complaint: Nausea/Vomiting/Diarrhea <Florecita Galeas PA-C - Last Filed: 10/04/23 18:18> Stated complaint: Chest tightness <Florecita Galeas PA-C - Last Filed: 10/04/23 18:18> Time Seen by Provider: 10/04/23 13:11 <Florecita Galeas PA-C - Last Filed: 10/04/23 18:18> History of Present Illness HPI Narrative: 78-year-old female with a history of hypertension, hyperlipidemia, GERD and obesity reports for evaluation for chest tightness since 0600 this morning that radiates to her back. Patient says she took all of her medications this morning including her Protonix without relief. States she called her PCP who advised her to come to the ED for further evaluation. She states that the chest tightness is better at rest and worse with ambulation. She also reports associated shortness of breath and nausea. She denies history of CAD, CA, VTE. She states this does not feel like heartburn. She reports a mild cough last night, denies fever or congestion, BLE. She denies abdominal pain, dysuria or hematuria. Denies history of aortic aneurysm, palpitations, LOC, vomiting, smoking history. She does state that both of her parents and her son and daughter have history of heart disease. <Florecita Galeas PA-C - Last Filed: 10/04/23 18:18> Related Data Home medications: Home Medications Medication Instructions Recorded Confirmed vit C,E,zinc,copper-pzmda3o 250 1 cap PO DAILY 06/11/20 10/04/23 mg-lutein 5 mg-zeaxanthin 1 mg capsule (Ocuvite Adult 50 Plus) vitamin B complex (B 1 tablet PO DAILY 06/11/20 10/04/23 Complex-Vitamin B12 tablet) cholecalciferol (vitamin D3) 50 50 mcg PO DAILY 02/07/23 10/04/23 mcg (2,000 unit) capsule <Florecita Galeas PA-C - Last Filed: 10/04/23 18:18> Allergies/Adverse reactions: Allergies Allergy/AdvReac Type Severity Reaction Status Date / Time codeine Allergy Severe Hallucinati Verified 10/04/23 17:58 ng <Florecita Galeas PA-C - Last Filed: 10/04/23 18:18> Review of Systems Review of Systems: CONSTITUTIONAL: Denies fever, chills EYES: Denies visual changes, redness, or discharge. ENT: Denies rhinorrhea, congestion, sore throat, or otalgia. CARDIOVASCULAR: See HPI RESPIRATORY: See HPI GASTROINTESTINAL: Denies abdominal pain, nausea, vomiting, or diarrhea. GENITOURINARY: Denies dysuria or hematuria. SKIN: Denies rash or itching. MUSCULOSKELETAL: See HPI NEUROLOGIC: Denies headache, numbness, dizziness, or weakness. PSYCHIATRIC: Denies anxiety or depression. <Florecita Galeas PA-C - Last Filed: 10/04/23 18:18> [facility] Past Medical History Medical History: Medical History (Updated 10/04/23 @ 16:17 by Emelia Cerda PA-C) Asthma Atherosclerosis of aorta Eczema Gastroesophageal reflux disease Generalized osteoarthrosis, involving multiple sites Hypertension Major depressive disorder, recurrent, in partial remission Occlusion and stenosis of bilateral carotid arteries Other intervertebral disc degeneration, lumbar region Pure hypercholesterolemia, unspecified Restless leg syndrome Urge incontinence <Florecita Galeas PA-C - Last Filed: 10/04/23 18:18> Surgical History Surgical History: Surgical History (Updated 10/04/23 @ 16:17 by Emelia Cerda PA-C) History of arthroscopy of right shoulder (11/2010) History of breast biopsy (1984) History of cataract extraction History of hernia surgery (1979) History of hysterectomy (1978) History of laparoscopic cholecystectomy (08/2005) History of lumbar discectomy (05/2008) History of Blaine fundoplication (02/2018) History of total left knee replacement (11/21/18) History of total right knee replacement (01/2012) <Florecita Galeas PA-C - Last Filed: 10/04/23 18:18> Family History Family History: Family History Sibling Carcinoma of colon Mother Heart
[2023-10-04] MEDS: ONDANSETRON INJ 4 MG/2 ML VIAL IV PUSH (13:34)
[2023-10-04 13:47] LABS: Basophils Percent Auto 0.2 % (0.2-1.2); Eosinophils Percent Auto 0.1 % (0-4.4); Hematocrit 40.5 % (37.0-47.0); Hemoglobin 13.1 g/dL (12.0-15.0); Immature Granulocyte Percent A 0.9 % (0-0.5); Lymphocytes Absolute Auto 2.41 K/mm3 (0.9-3.2); Lymphocytes Percent Auto 22.7 % (18.3-44.2); Mean Corpuscular HGB Conc 32.3 g/dl (32-36); Mean Corpuscular Hemoglobin 28.5 pg (26-34); Mean Platelet Volume 10.3 fl (7.4-10.4); Monocytes Absolute Auto 1.3 K/mm3 (0.1-0.6); Monocytes Percent Auto 12.2 % (2.6-8.5); Neutrophils Absolute Auto 6.8 K/mm3 (1.3-6.7); Neutrophils Percent Auto 63.9 % (45.5-73.1); Platelet Count Result 326 k/mm3 (150-375); Red Cell Distribution Width 13.3 % (11.5-14.5); White Blood Count 10.6 K/mm3 (4.5-10.0)
[2023-10-04 13:57] LABS: Alanine Aminotransferase 17 U/L (6-35); Albumin Level 4.3 g/dL (3.5-5.1); Alkaline Phosphatase 86 U/L (38-126); Anion Gap 9 mmol/L (8-16); Aspartate Amino Transferase 20 U/L (14-36); Bilirubin,Total 0.7 mg/dL (0.2-1.3); Blood Urea Nitrogen 21 mg/dL (7-17); Calcium 9.9 mg/dL (8.4-10.2); Carbon Dioxide 28 mmol/L (22-30); Chloride 100 mmol/L (98-107); Estimated Glomerular Filt Rate > 60; Glucose 88 mg/dL (65-110); Lipase 23 U/L (23-300); Potassium 3.6 mmol/L (3.4-5.0); Sodium 137 mmol/L (137-145)
[2023-10-04 14:00] LABS: INR 1.1; Prothrombin Time 14.1 Seconds (11.1-14.7)
[2023-10-04 14:08] LABS: NT Pro B Type Natriuretic Pept 779 pg/mL (19.9-100); Troponin I < 0.012 ng/mL (0.000-0.034)
[2023-10-04 14:16] LABS: Appearance Urine Clear (Clear); Bilirubin Urine Negative (Negative); Blood Urine Negative (Negative); Color Urine Yellow (Yellow); Glucose Urine UA Negative (Negative); Ketones Urine Negative (Negative); Leukocyte Esterase Ur Negative LEU/UL (Negative); Nitrate Urine Negative (Negative); Protein Urine Negative (Negative); Specific Grav Ur 1.011 (1.001-1.035); Urobilinogen Urine 0.2 mg/dL (<2.0); pH Urine 6.5 (5.0-9.0)
[2023-10-04 14:29] LABS: Add Urine Microscopic? NO
[2023-10-04 15:00] LABS: Partial Thromboplastin Time 22.3 SECONDS (22.3-36.8)
[2023-10-04] MEDS: ASPIRIN 81 MG CHEWABLE TABLET 324 MG PO (15:17)
[2023-10-04] MEDS: NITROGLYCERIN SL 0.4 MG TABLET SUBLINGUAL (15:18)
[2023-10-04] MEDS: FAMOTIDINE 20 MG/2 ML VIAL IV PUSH (15:18)
--- NOTE | 2023-10-04 15:19 | PC.NURSE ---
Pt given SL nitro tab at this time, rates pain a 6/10.
--- NOTE | 2023-10-04 15:24 | PC.NURSE ---
second SL nitro tab given at this time, pain is currently a 4-5/10 (orig. a 6)
--- NOTE | 2023-10-04 15:29 | ECG_ITS ---
Measurements Intervals [place] Rate: 76 P: -89 TN: 361 QRS: 18 QRSD: 85 T: 71 QT: 371 QTc: 419 Interpretive Statements SINUS RHYTHM NONSPECIFIC T-WAVE ABNORMALITY- HIGH LATERAL LEADS BASELINE ARTIFACT- II, III, AVR, AVL, AVF, V3-V6 BORDERLINE ECG COMPARED TO ECG 10/04/2023 13:10:36 NO SIGNIFICANT CHANGES Electronically Signed On 10-04-2023 15:49:57 HANGER OFF by Peterson Mcginnis D.O.
--- NOTE | 2023-10-04 15:31 | PC.NURSE ---
Pt given 3rd SL nitro tab, rates pain a 3-4/10 (orig. 6/10)
--- NOTE | 2023-10-04 15:50 | ECG_ITS ---
Measurements Intervals [place] Rate: 77 P: 93 TN: 366 QRS: -24 QRSD: 85 T: -34 QT: 375 QTc: 427 Interpretive Statements SINUS RHYTHM ATRIAL PREMATURE COMPLEXES LEFT VENTRICULAR HYPERTROPHY AND ST-T CHANGE BASELINE ARTIFACT- I, II, III, AVR, AVL, AVF, V3-V6 BORDERLINE ECG COMPARED TO ECG 10/04/2023 15:42:15 LEFT VENTRICULAR HYPERTROPHY NOW PRESENT Electronically Signed On 10-06-2023 11:57:34 MACHINE FINISHER by Peterson Mcginnis D.O.
--- NOTE | 2023-10-04 16:07 | PM.IMHP ---
H&P: HPI History of Present Illness Date/Time: 10/04/23 16:10 Chief Complaint: Chest tightness. Narrative: This is a 78-year-old female hypertension, hyperlipidemia, chronic kidney disease, restless leg syndrome, and gastroesophageal reflux who presented to the emergency department via private vehicle for evaluation of chest tightness. The patient provides the following history. She had COVID in July and the flu sometime last month and she has not really been back to baseline. At time she continues to have a dry cough and last evening while at [facility] she had a coughing fit with a mild headache. She had quite a bit of indigestion at that time as well. This morning she got up at about 06:00 at which time she noticed a tightness or pressure-like sensation in the mid to low chest which felt somewhat similar to her GERD however was much more intense. It radiated into the back and was associated with nausea, dry heaves, and mild shortness of breath. She took her pantoprazole and Tums without any relief. It seemed to be worse with exertion. Sublingual nitroglycerin x3 given in the ED has brought her discomfort down to almost nothing. Her vital signs were stable on arrival. CMP and CBC were pretty unremarkable. Initial troponin was normal in proBNP was 779. Lipase was 23. CTA of the chest, abdomen, and pelvis was negative for aneurysm or dissection and showed a moderate size sliding hernia and a relatively abrupt caliber change of the colon at the splenic flexure. EKG showed a sinus rhythm with nonspecific T-wave changes in the high lateral leads. She is being admitted in this setting for cardiac rule out. Review of Systems Review of Systems: Twelve systems were reviewed. She had recent COVID and flu as detailed in HPI. No syncope or near syncope. She denies vomiting. No melena or hematochezia. Except as documented, all other systems were reviewed and are negative. [facility] Past Medical History Medical History Asthma Atherosclerosis of aorta Eczema Gastroesophageal reflux disease Generalized osteoarthrosis, involving multiple sites Hypertension Major depressive disorder, recurrent, in partial remission Occlusion and stenosis of bilateral carotid arteries Other intervertebral disc degeneration, lumbar region Pure hypercholesterolemia, unspecified Restless leg syndrome Urge incontinence Surgical History Surgical History History of arthroscopy of right shoulder (11/2010) History of breast biopsy (1984) History of cataract extraction History of hernia surgery (1979) History of hysterectomy (1978) History of laparoscopic cholecystectomy (08/2005) History of lumbar discectomy (05/2008) History of Blaine fundoplication (02/2018) History of total left knee replacement (11/21/18) History of total right knee replacement (01/2012) Family History Family History Sibling Carcinoma of colon Mother Heart disease Father Heart disease Other Diabetes mellitus Family history of kidney disease Family history of malignant neoplasm Hypertension Social History Social History (Updated 10/04/23 @ 21:00 by Emelia Cerda PA-C) Social History: Surrogate medical decision maker: Alonzo Ordaz, hillary. Code status: Full code. Smoking status: Never smoker Alcohol intake: never Substance use: never Substance use type: does not use Lack of Transportation: No Lack of Food: Never True Current Housing: I Have Housing Concerned About Future Housing: No Difficulty Paying Gas/Electric Bills: No Difficulty Paying for Meds: No Currently Unemployed: No Education: High School Diploma/GED Difficulty w/ Childcare or Family Care: No Living arrangements: with family Additional living arrangements comments: . Occupation/Education: retired Additional occup
[2023-10-04 17:07] LABS: Troponin I < 0.012 ng/mL (0.000-0.034)
--- NOTE | 2023-10-04 17:29 | PC.NURSE ---
This RN called dietary and ordered a dinner tray for pt, will be sent to room 211.
--- NOTE | 2023-10-04 18:47 | ADMGEN ---
This patient, Amber Ordaz, was admitted to IMU Room 211-01. Patient/family oriented to hospital policies and general routines including ID bracelet, bed and alarms, visiting hours, pain management, procedures, bathroom and other care routines, personal items, smoking policy, room service/diet, and visiting hours. Information on how to activate the Rapid Response Team has been discussed. Patient/Family are encouraged to report perceived risks to care and to ask questions if they do not understand what they are told or what they should do.
[2023-10-04 20:01] LABS: Troponin I < 0.012 ng/mL (0.000-0.034)
[2023-10-04] MEDS: oxyBUTYnin CHLORIDE 5 MG TABLET PO (21:54)
[2023-10-04] MEDS: ACETAMINOPHEN 325 MG TABLET 650 MG PO (21:54)
[2023-10-04] MEDS: rOPINIRole HCL 1 MG TABLET PO (21:54)
[2023-10-04] MEDS: traZODone HCL 50 MG TABLET PO (21:54)
[2023-10-04] MEDS: BELLADONNA ALK/PHENOB ELIX 10 ML, MAG HYDROX/ALUMINUM HYD/SIMETH 30 ML, LIDOCAINE HCL 2... PO (21:57)
[2023-10-05] VITALS (18 sets, daily range): BP systolic 105–150; BP diastolic 52–77; PULSE 59–99; RESP 18–21; TEMP 36.1–36.7; O2SAT 96–99
[2023-10-05] MEDS: ACETAMINOPHEN 325 MG TABLET 650 MG PO ×2 (03:37→18:17)
--- NOTE | 2023-10-05 08:10 | PM.IMPN ---
Progress Note: A&P Assessment and Plan (1) Chest tightness: Code(s): R07.89 - Other chest pain Status: Acute (2) Hypertension: Qualifiers: Hypertension type: primary hypertension Qualified Code(s): I10 - Essential (primary) hypertension Code(s): I10 - Essential (primary) hypertension Status: Acute (3) Gastroesophageal reflux disease: Code(s): K21.9 - Gastro-esophageal reflux disease without esophagitis Status: Acute (4) Restless leg syndrome: Code(s): G25.81 - Restless legs syndrome Status: Acute Plan Chest pain The patient presented to the emergency department for evaluation of chest tightness as detailed in HPI. Labs, imaging, EKG, and all reports were personally reviewed. Troponin negative, EKG shows sinus rhythm no specific ST-T changes Hilda assess Continue aspirin plans Lexiscan on Saturday. pending echo Dysphagia Patient has epigastric pain, and has trouble swallowing intermittently, sometimes has a feeling of foot stuck behind chest Patient has acid reflux. And patient also has history of esophageal stricture and underwent esophageal dilatation twice Continue Protonix 40 mg daily p.o. Consult general GI for evaluation treatment Hypertension Continue losartan 100 mg daily p.o. Patient may stay more than 2 midnights in hospital Subjective Date/time seen: 10/05/23 08:10 Interval history: I saw exam patient today. Patient has chest pain today, patient has acid reflux, and has intermittent trouble with swallowing. Patient denies nausea vomiting Exam Narrative: General: A well-developed, nontoxic-appearing female sitting up in bed no acute distress. Weight: 99.4 kg. BMI: 36.5. HEENT: Normocephalic, atraumatic. PERRL, EOMI. Sclera anicteric. Oral mucosa moist. Neck: Supple. No JVD. Respiratory: Lungs are clear to auscultation bilaterally. Cardiovascular: Regular rate and rhythm with S1-S2. Chest: No significant tenderness to palpation over the chest wall. Gastrointestinal: Abdomen is soft, nontender, and nondistended with positive bowel sounds. No guarding or rebound tenderness. Skin: Warm and dry. Extremities: No cyanosis, clubbing, or edema. Radial and pedal pulses intact. Neurological: Alert. Cranial nerves 2-12 are grossly intact. No gross focal deficits to casual conversation. Psychiatric: Pleasant and cooperative with normal mood and affect. Judgment and insight intact. Objective Data Vital Signs Vital Signs: Vital Signs - 24 hr 10/04/23 13:01 10/04/23 13:50 10/04/23 15:03 Temperature 98.1 F Pulse Rate 92 68 66 Respiratory Rate 18 18 12 Blood Pressure 158/56 H 142/82 H 138/79 Pulse Oximetry 100 95 97 Oxygen Delivery Room Air 10/04/23 15:19 10/04/23 15:24 10/04/23 15:31 Temperature Pulse Rate 113 H 107 H Respiratory Rate 13 18 Blood Pressure 148/83 H 144/86 H 141/83 H Pulse Oximetry 97 97 Oxygen Delivery 10/04/23 15:52 10/04/23 17:51 10/04/23 18:00 Temperature 96.3 F L Pulse Rate 74 62 64 Respiratory Rate 19 18 Blood Pressure 150/78 H 138/72 Pulse Oximetry 95 97 Oxygen Delivery 10/04/23 18:44 10/04/23 19:56 10/04/23 23:01 Temperature 97.0 F L 97.8 F Pulse Rate 60 67 Respiratory Rate 18 18 Blood Pressure 111/64 110/59 L Pulse Oximetry 98 96 Oxygen Delivery Room Air 10/04/23 20:00 10/04/23 20:00 10/04/23 22:00 Temperature Pulse Rate 75 80 Respiratory Rate Blood Pressure Pulse Oximetry 98 Oxygen Delivery Room Air 10/05/23 00:00 10/05/23 00:00 10/05/23 02:00 Temperature Pulse Rate 63 82 Respiratory Rate Blood Pressure Pulse Oximetry 96 Oxygen Delivery Room Air 10/05/23 03:24 10/05/23 04:00 10/05/23 04:00 Temperature 97.6 F Pulse Rate 59 L 63 Respiratory Rate 18 Blood Pressure 150/75 H Pulse Oximetry 97 97 Oxygen Delivery Room Air 10/05/23 06:00 10/05/23 07:33 Temperature 97.7 F Pulse Rat
[2023-10-05] MEDS: CITALOPRAM HYDROBROMIDE 20 MG TABLET PO (09:16)
[2023-10-05] MEDS: INDAPAMIDE 1.25 MG TABLET PO (09:16)
[2023-10-05] MEDS: VERAPAMIL HCL ER 240 MG TABLET.ER PO (09:16)
[2023-10-05] MEDS: CHOLECALCIFEROL 1,000 UNITS TABLET 2000 UNITS PO (09:16)
[2023-10-05] MEDS: OPTI-GEN TAB 1 TABLET PO (09:16)
[2023-10-05] MEDS: oxyBUTYnin CHLORIDE 5 MG TABLET PO ×2 (09:16→18:17)
[2023-10-05] MEDS: VITAMIN B COMPLEX CAPSULE 1 CAP PO (09:16)
[2023-10-05] MEDS: PANTOPRAZOLE 40 MG TABLET PO (09:16)
[2023-10-05] MEDS: LOSARTAN POTASSIUM 100 MG TABLET PO (09:19)
--- NOTE | 2023-10-05 09:52 | PM.CNCAR ---
Assessment and Plan Assessment and plan (1) Chest tightness: Code(s): R07.89 - Other chest pain Status: Acute Assessment and Plan: She does have risk factors for heart disease. Although she does have reproducible chest wall tenderness on examination, patient reports that this is a different type of pain that the one she gets with exertion. Troponins are negative. EKG without ischemic changes. Will obtain Lexiscan on Saturday. Check A1c and lipid panel for risk stratification. Given her known aortic atherosclerosis, will start patient on ASA 81mg once daily and change her home Pravastatin to a high intensity statin. Echocardiogram has already been ordered and is pending. (2) Pure hypercholesterolemia, unspecified: Code(s): E78.00 - Pure hypercholesterolemia, unspecified Status: Acute Assessment and Plan: Ordered lipid panel. Given her known aortic atherosclerosis, will change her home Pravastatin to a high intensity statin. (3) Hypertension: Qualifiers: Hypertension type: primary hypertension Qualified Code(s): I10 - Essential (primary) hypertension Code(s): I10 - Essential (primary) hypertension Status: Acute Assessment and Plan: Stable, continue home meds (4) Atherosclerosis of aorta: Code(s): I70.0 - Atherosclerosis of aorta Status: Acute Assessment and Plan: Given her known aortic atherosclerosis, will start patient on ASA 81mg once daily and change her home Pravastatin to a high intensity statin. History of Present Illness History of Present Illness Consult date/time: 10/05/23 09:52 Requesting physician: Florecita Galeas PA-C Consult reason: chest pain Reason For Visit: Chest tightness Narrative: We are consulted for chest pain. This is a 78 year old female with hypertension, hyperlipidemia, prediabetes, GERD, osteoarthritis, degenerative disc disease and aortic atherosclerosis who presented to [facility] for evaluation of chest pain. Patient reports that for the past few months she has been getting exertional central chest pain that occurs with activities such as vacuuming. She does have right shoulder pain chronically, but the chest pain is different than that. Patient states she woke up on Saturday with chest pain that kept persisting all day. She thought it may have been indigestion and took her Protonix and Tums without any relief. Her chest pain improved with SL NTG in the ED. She does report chest pain this morning, but is otherwise comfortable. ER workup showed negative troponins. EKG without ischemic changes. CTA of C/A/P showed moderate size sliding hernia. She does not smoke. Her mother at 54 from a heart attack. Review of Systems Review of Systems: All systems reviewed & are unremarkable except as noted in HPI and below (HPI) [facility] Past Medical History Medical History Asthma Atherosclerosis of aorta Eczema Gastroesophageal reflux disease Generalized osteoarthrosis, involving multiple sites Hypertension Major depressive disorder, recurrent, in partial remission Occlusion and stenosis of bilateral carotid arteries Other intervertebral disc degeneration, lumbar region Pure hypercholesterolemia, unspecified Restless leg syndrome Urge incontinence Surgical History Surgical History History of arthroscopy of right shoulder (11/2010) History of breast biopsy (1984) History of cataract extraction History of hernia surgery (1979) History of hysterectomy (1978) History of laparoscopic cholecystectomy (08/2005) History of lumbar discectomy (05/2008) History of Blaine fundoplication (02/2018) History of total left knee replacement (11/21/18) History of total right knee replacement (01/2012) Family History Family History Sibling Carcinoma of colon Mother Heart disease
[2023-10-05 10:51] LABS: Cholesterol 194 mg/dL (0-200); HDL Direct 80 mg/dL; Triglycerides 155 mg/dL (<150)
[2023-10-05 10:54] LABS: Hemoglobin A1C 5.3 % (<5.7)
[2023-10-05 11:01] LABS: LDL Cholesterol Direct 68 mg/dL
[2023-10-05] MEDS: ASPIRIN 81 MG ENTERIC TABLET PO (12:38)
[2023-10-05 15:02] LABS: Anion Gap 10 mmol/L (8-16); Blood Urea Nitrogen 22 mg/dL (7-17); Calcium 9.2 mg/dL (8.4-10.2); Carbon Dioxide 29 mmol/L (22-30); Chloride 98 mmol/L (98-107); Estimated CRCL calculation 48 ml/min; Estimated Glomerular Filt Rate 54; Glucose 142 mg/dL (65-110); Magnesium 1.7 mg/dL (1.6-2.3); Potassium 3.7 mmol/L (3.4-5.0); Sodium 137 mmol/L (137-145)
[2023-10-05] MEDS: traZODone HCL 50 MG TABLET PO (20:41)
[2023-10-05] MEDS: rOPINIRole HCL 1 MG TABLET PO (20:41)
--- NOTE | 2023-10-05 21:04 | ECHO_ITS ---
Patient Info Name: Amber Ordaz Age: 78 years : 1945 Gender: Female Ht: 65 in Wt: 220 lbs BSA: 2.18 m2 HR: 44 bpm BP: 146 / 63 mmHg Heart Rhythm: Sinus Rhythm Technical Quality: Good Exam Date: 10/05/2023 8:30 AM Exam Location: Echo Lab Patient Status: Inpatient Admit Date: 10/04/2023 Staff Ordering Physician: Emelia Cerda PA-C Field Worker: Gemini Bobby RDCS Attending Provider: Daiana Yanes MD Referring Physician: Prashant LAW; Exam Type: CA echo doppler color flow Study Info Indications - chest pain , HTN Complete two-dimensional, color flow and Doppler transthoracic echocardiogram is performed. Summary 1. Complete two-dimensional, color flow and Doppler transthoracic echocardiogram is performed. 2. Left ventricular chamber dimension is normal. 3. Left ventricular systolic function is normal, estimated at 65-70%. 4. There is mildly increased left ventricular wall thickness. 5. The left ventricular diastolic function is grade I diastolic dysfunction. 6. Right ventricular systolic function is normal. 7. There is mild mitral valve regurgitation. 8. There is trace tricuspid valve regurgitation. 9. There is mild pulmonic regurgitation. Left Ventricle Left ventricular chamber dimension is normal. Left ventricular systolic function is normal, estimated at 65-70%. There is mildly increased left ventricular wall thickness. The left ventricular diastolic function is grade I diastolic dysfunction. Right Ventricle Right ventricular chamber dimension is normal. Right ventricular systolic function is normal. Left Atria Left atrial chamber dimension is normal. Right Atria Right atrial chamber dimension is normal. Atrial Septum Intact interatrial septum visualized by color flow imaging. Aortic Valve The aortic valve is probable trileaflet. There is no aortic valve stenosis. There is no aortic valve regurgitation. There is mild aortic valve calcification. Pulmonic Valve The pulmonic valve is not well visualized. There is mild pulmonic regurgitation. Mitral Valve There is mild mitral valve regurgitation. The mitral valve annulus is mildly calcified. Tricuspid Valve There is trace tricuspid valve regurgitation. Pericardium/Pleural There is no pericardial effusion. Inferior Vena Cava Normal inferior vena cava with >50% collapse upon inspiration consistent with normal right atrial pressure, 3 mmHg. Aorta The aortic root size at the sinus of Valsalva is normal. Left Ventricular Outflow Tract Name Value Normal LVOT 2D LVOT Diameter 1.9 cm LVOT Doppler LVOT Peak Gradient 6 mmHg LVOT Mean Gradient 3 mmHg LVOT VTI 29 cm LVOT VTI/AV VTI Ratio 0.7 LVOT Stroke Volume 85 ml LVOT CO 6.1 l/min LVOT CI 2.8 l/min/m2 Pulmonic Valve Name Value Normal RVOT Doppler
[2023-10-06] VITALS (14 sets, daily range): BP systolic 106–151; BP diastolic 53–75; PULSE 66–91; RESP 16–18; TEMP 36.1–36.8; O2SAT 95–98
--- NOTE | 2023-10-06 08:59 | PM.IMPN ---
Progress Note: A&P Assessment and Plan (1) Chest tightness: Code(s): R07.89 - Other chest pain Status: Acute (2) Hypertension: Qualifiers: Hypertension type: primary hypertension Qualified Code(s): I10 - Essential (primary) hypertension Code(s): I10 - Essential (primary) hypertension Status: Acute (3) Gastroesophageal reflux disease: Code(s): K21.9 - Gastro-esophageal reflux disease without esophagitis Status: Acute (4) Restless leg syndrome: Code(s): G25.81 - Restless legs syndrome Status: Acute Plan Chest pain The patient presented to the emergency department for evaluation of chest tightness as detailed in HPI. Labs, imaging, EKG, and all reports were personally reviewed. Troponin negative, EKG shows sinus rhythm no specific ST-T changes Hilda assess Continue aspirin plans Lexiscan on Saturday. echo reveals normal EF, grade 1 diastolic dysfunction, no significant valvular disease Dysphagia Patient has epigastric pain, and has trouble swallowing intermittently, sometimes has a feeling of foot stuck behind chest Patient has acid reflux. And patient also has history of esophageal stricture and underwent esophageal dilatation twice Continue Protonix 40 mg daily p.o. Consult general GI for evaluation treatment Hypertension Continue losartan 100 mg daily p.o. Patient may stay more than 2 midnights in hospital Subjective Date/time seen: 10/06/23 08:59 Interval history: I saw exam patient today. Patient has chest pain intermittently with swallowing and eating, patient has acid reflux, Exam Narrative: General: A well-developed, nontoxic-appearing female sitting up in bed no acute distress. Weight: 99.4 kg. BMI: 36.5. HEENT: Normocephalic, atraumatic. PERRL, EOMI. Sclera anicteric. Oral mucosa moist. Neck: Supple. No JVD. Respiratory: Lungs are clear to auscultation bilaterally. Cardiovascular: Regular rate and rhythm with S1-S2. Chest: No significant tenderness to palpation over the chest wall. Gastrointestinal: Abdomen is soft, nontender, and nondistended with positive bowel sounds. No guarding or rebound tenderness. Skin: Warm and dry. Extremities: No cyanosis, clubbing, or edema. Radial and pedal pulses intact. Neurological: Alert. Cranial nerves 2-12 are grossly intact. No gross focal deficits to casual conversation. Psychiatric: Pleasant and cooperative with normal mood and affect. Judgment and insight intact. Objective Data Vital Signs Vital Signs: Vital Signs - 24 hr 10/05/23 11:33 10/05/23 15:33 10/05/23 19:38 Temperature 97.7 F 98.0 F 97 F L Pulse Rate 74 83 99 Respiratory Rate 21 H 19 18 Blood Pressure 150/77 H 115/60 115/54 L Pulse Oximetry 98 97 99 Oxygen Delivery 10/05/23 10:00 10/05/23 12:00 10/05/23 14:00 Temperature Pulse Rate 82 84 77 Respiratory Rate Blood Pressure Pulse Oximetry Oxygen Delivery 10/05/23 16:00 10/05/23 18:00 10/05/23 12:00 Temperature Pulse Rate 74 71 Respiratory Rate Blood Pressure Pulse Oximetry Oxygen Delivery Room Air 10/05/23 16:00 10/05/23 23:47 10/05/23 20:00 Temperature 97 F L Pulse Rate 68 64 Respiratory Rate 18 Blood Pressure 105/52 L Pulse Oximetry 97 Oxygen Delivery Room Air 10/05/23 22:00 10/05/23 20:00 10/06/23 00:00 Temperature Pulse Rate 68 73 Respiratory Rate Blood Pressure Pulse Oximetry 99 Oxygen Delivery Room Air 10/06/23 00:00 10/06/23 02:00 10/06/23 04:00 Temperature Pulse Rate 69 66 Respiratory Rate Blood Pressure Pulse Oximetry 97 Oxygen Delivery Room Air 10/06/23 04:00 10/06/23 04:57 10/06/23 08:00 Temperature 97 F L 97.4 F L Pulse Rate 68 84 Respiratory Rate 18 16 Blood Pressure 106/54 L 139/66 Pulse Oximetry 97 97 98 Oxygen Delivery Room Air Intake/Output Intake/Output: Intake & Output 10/03/23 10/04/23 10/05/23
[2023-10-06] MEDS: ATORVASTATIN 40 MG TABLET 80 MG PO (09:24)
[2023-10-06] MEDS: VERAPAMIL HCL ER 240 MG TABLET.ER PO (09:24)
[2023-10-06] MEDS: LOSARTAN POTASSIUM 100 MG TABLET PO (09:24)
[2023-10-06] MEDS: CITALOPRAM HYDROBROMIDE 20 MG TABLET PO (09:24)
[2023-10-06] MEDS: OPTI-GEN TAB 1 TABLET PO (09:24)
[2023-10-06] MEDS: INDAPAMIDE 1.25 MG TABLET PO (09:24)
[2023-10-06] MEDS: PANTOPRAZOLE 40 MG TABLET PO (09:24)
[2023-10-06] MEDS: oxyBUTYnin CHLORIDE 5 MG TABLET PO ×2 (09:24→15:48)
[2023-10-06] MEDS: CHOLECALCIFEROL 1,000 UNITS TABLET 2000 UNITS PO (09:25)
[2023-10-06] MEDS: VITAMIN B COMPLEX CAPSULE 1 CAP PO (09:25)
[2023-10-06] MEDS: ASPIRIN 81 MG ENTERIC TABLET PO (09:25)
--- NOTE | 2023-10-06 09:51 | WPDGICN ---
Assessment and Plan Assessment and plan (1) Chest tightness: Code(s): R07.89 - Other chest pain Status: Acute Assessment and Plan: she is not having chest tightness today. Lexiscan test tomorrow will schedule EGD to follow Lexiscan. (2) Gastroesophageal reflux disease: Code(s): K21.9 - Gastro-esophageal reflux disease without esophagitis Status: Acute Assessment and Plan: She has been on pantoprazole for quite a while. in general it usually helps. (3) Dysphagia: Code(s): R13.10 - Dysphagia, unspecified Status: Acute Assessment and Plan: She has been having increasing dysphagia lately for bread meats such as sandwiches but also occasionally for rice. She did have an esophageal stricture dilated about 5 years ago. A barium swallow had also shown dysmotility in the past. Plan EGD with possible biopsy or dilatation or cautery. GI Consult Note Consult date/time: 10/06/23 09:51 HPI: Amber Ordaz is a 78 year old female with known gastroesophageal reflux disease, chronic kidney disease, hypertension and hyperlipidemia who came to the emergency room complaining of chest pain. She does frequently get discomfort in her chest due to her acid reflux but she feels that her pantoprazole helps that most the time. This time however she woke up at 6:00 a.m. with tightness and pressure which radiated to the back this was accompanied by nausea and some dry heaves. She took Tums without relief. Sublingual nitroglycerin in the emergency room did relieve her pain. A troponin was normal. CTA of the abdomen chest and pelvis were all negative, Except for showing abrupt cut off or change in caliber of the colon at the splenic flexure. She states that she has dysphagia from time to time more recently lately particularly for bread and meat. She did have esophageal dilatation in the past but that was about 5 years ago. So far cardiac workup is negative but she is scheduled for Lexiscan study tomorrow Review of Systems Review of Systems: All systems reviewed & are unremarkable except as noted in HPI and below PMFSH Past Medical History Medical History Asthma Atherosclerosis of aorta Eczema Gastroesophageal reflux disease Generalized osteoarthrosis, involving multiple sites Hypertension Major depressive disorder, recurrent, in partial remission Occlusion and stenosis of bilateral carotid arteries Other intervertebral disc degeneration, lumbar region Pure hypercholesterolemia, unspecified Restless leg syndrome Urge incontinence Surgical History Surgical History History of arthroscopy of right shoulder (11/2010) History of breast biopsy (1984) History of cataract extraction History of hernia surgery (1979) History of hysterectomy (1978) History of laparoscopic cholecystectomy (08/2005) History of lumbar discectomy (05/2008) History of Blaine fundoplication (02/2018) History of total left knee replacement (11/21/18) History of total right knee replacement (01/2012) Family History Family History Sibling Carcinoma of colon Mother Heart disease Father Heart disease Other Diabetes mellitus Family history of kidney disease Family history of malignant neoplasm Hypertension Social History Social History Social History: Surrogate medical decision maker: Alonzo Ordaz, son. Code status: Full code. Smoking status: Never smoker Alcohol intake: never Substance use: never Substance use type: does not use Lack of Transportation: No Lack of Food: Never True Current Housing: I Have Housing Concerned About Future Housing: No Difficulty Paying Gas/Electric Bills: No Difficulty Paying for Meds: No Currently Unemployed: No Education:
[2023-10-06] MEDS: CELECOXIB 100 MG CAPSULE PO (12:46)
[2023-10-06] MEDS: ACETAMINOPHEN 325 MG TABLET 650 MG PO (15:48)
[2023-10-06] MEDS: rOPINIRole HCL 1 MG TABLET PO (22:05)
[2023-10-06] MEDS: traZODone HCL 50 MG TABLET PO (22:05)
[2023-10-07] VITALS (14 sets, daily range): BP systolic 103–151; BP diastolic 41–93; PULSE 69–110; RESP 16–23; TEMP 35.7–36.7; O2SAT 96–98
--- NOTE | 2023-10-07 07:45 | PM.IMPN ---
Progress Note: A&P Assessment and Plan (1) Chest tightness: Code(s): R07.89 - Other chest pain Status: Acute (2) Hypertension: Qualifiers: Hypertension type: primary hypertension Qualified Code(s): I10 - Essential (primary) hypertension Code(s): I10 - Essential (primary) hypertension Status: Acute (3) Gastroesophageal reflux disease: Code(s): K21.9 - Gastro-esophageal reflux disease without esophagitis Status: Acute (4) Restless leg syndrome: Code(s): G25.81 - Restless legs syndrome Status: Acute Plan Chest pain The patient presented to the emergency department for evaluation of chest tightness as detailed in HPI. Labs, imaging, EKG, and all reports were personally reviewed. Troponin negative, EKG shows sinus rhythm no specific ST-T changes Hilda assess Continue aspirin plans Lexiscan . echo reveals normal EF, grade 1 diastolic dysfunction, no significant valvular disease Dysphagia Patient has epigastric pain, and has trouble swallowing intermittently, sometimes has a feeling of foot stuck behind chest Patient has acid reflux. And patient also has history of esophageal stricture and underwent esophageal dilatation twice Continue Protonix 40 mg daily p.o. Consult general GI for evaluation treatment 10/07 EGD was done, patient was found have distal esophageal stenosis. Dilatation was performed. Hypertension Continue losartan 100 mg daily p.o. Patient may stay more than 2 midnights in hospital Subjective Date/time seen: 10/07/23 07:45 Interval history: Patient has no new issue events over the night. EGD was done, patient was found have distal esophageal stenosis. Dilatation was performed. Patient denies chest pain, shortness of breath, palpitation Exam Narrative: General: A well-developed, nontoxic-appearing female sitting up in bed no acute distress. Weight: 99.4 kg. BMI: 36.5. HEENT: Normocephalic, atraumatic. PERRL, EOMI. Sclera anicteric. Oral mucosa moist. Neck: Supple. No JVD. Respiratory: Lungs are clear to auscultation bilaterally. Cardiovascular: Regular rate and rhythm with S1-S2. Chest: No significant tenderness to palpation over the chest wall. Gastrointestinal: Abdomen is soft, nontender, and nondistended with positive bowel sounds. No guarding or rebound tenderness. Skin: Warm and dry. Extremities: No cyanosis, clubbing, or edema. Radial and pedal pulses intact. Neurological: Alert. Cranial nerves 2-12 are grossly intact. No gross focal deficits to casual conversation. Psychiatric: Pleasant and cooperative with normal mood and affect. Judgment and insight intact. Objective Data Vital Signs Vital Signs: Vital Signs - 24 hr 10/06/23 08:00 10/06/23 08:00 10/06/23 10:00 Temperature 97.4 F L Pulse Rate 84 91 84 Respiratory Rate 16 Blood Pressure 139/66 Pulse Oximetry 98 Oxygen Delivery 10/06/23 08:00 10/06/23 11:56 10/06/23 12:00 Temperature 97.4 F L Pulse Rate 80 85 Respiratory Rate 18 Blood Pressure 151/75 H Pulse Oximetry 98 Oxygen Delivery Room Air 10/06/23 16:00 10/06/23 12:00 10/06/23 16:00 Temperature 98.2 F Pulse Rate 79 Respiratory Rate 18 Blood Pressure 115/53 L Pulse Oximetry 95 Oxygen Delivery Room Air Room Air 10/06/23 16:00 10/06/23 18:00 10/06/23 19:40 Temperature 97.6 F Pulse Rate 83 70 73 Respiratory Rate 18 Blood Pressure 149/73 H Pulse Oximetry 98 Oxygen Delivery 10/06/23 23:55 10/06/23 20:00 10/06/23 22:00 Temperature 97.3 F L Pulse Rate 79 72 69 Respiratory Rate 18 Blood Pressure 123/61 Pulse Oximetry 98 Oxygen Delivery 10/07/23 00:00 10/06/23 20:00 10/07/23 00:00 Temperature Pulse Rate 79 Respiratory Rate Blood Pressure Pulse Oximetry 98 98 Oxygen Delivery Room Air Room Air 10/07/23 02:00 10/07/23 04:00 10/07/23 04:00 Temperature 97.8 F Pulse Rate 69 77 79 Respir
[2023-10-07] MEDS: ASPIRIN 81 MG ENTERIC TABLET PO (09:12)
[2023-10-07] MEDS: CELECOXIB 100 MG CAPSULE PO (09:12)
[2023-10-07] MEDS: CHOLECALCIFEROL 1,000 UNITS TABLET 2000 UNITS PO (09:13)
[2023-10-07] MEDS: OPTI-GEN TAB 1 TABLET PO (09:13)
[2023-10-07] MEDS: CITALOPRAM HYDROBROMIDE 20 MG TABLET PO (09:13)
[2023-10-07] MEDS: INDAPAMIDE 1.25 MG TABLET PO (09:13)
[2023-10-07] MEDS: ATORVASTATIN 40 MG TABLET 80 MG PO (09:13)
[2023-10-07] MEDS: LOSARTAN POTASSIUM 100 MG TABLET PO (09:13)
[2023-10-07] MEDS: PANTOPRAZOLE 40 MG TABLET PO (09:14)
[2023-10-07] MEDS: oxyBUTYnin CHLORIDE 5 MG TABLET PO ×2 (09:14→17:44)
[2023-10-07] MEDS: VERAPAMIL HCL ER 240 MG TABLET.ER PO (09:14)
[2023-10-07] MEDS: VITAMIN B COMPLEX CAPSULE 1 CAP PO (09:14)
--- NOTE | 2023-10-07 09:49 | EST_ITS ---
Patient Info Name: Amber Ordaz Age: 78 years : 1945 Gender: Female Ht: 65 in Wt: 219 lbs BSA: 2.18 m2 HR: 75 bpm BP: 133 / 94 mmHg Heart Rhythm: Sinus Rhythm Exam Date: 10/07/2023 11:40 AM Exam Location: Echo Lab Patient Status: Inpatient Admit Date: 10/04/2023 Staff Ordering Physician: Nilson Hollins MD Attending Provider: Daiana Yanes MD Exercise Technologist: Darby Alanis, CT Nurse: Ileana Saavedra APN Exam Type: CA stress dung w NM Study Info Indications R07.89 - Other chest pain A regadenoson stress test was performed. Summary 1. Sinus rhythm with low QRS voltage. 2. No ST or T-wave abnormalities following Lexiscan injection. 3. None. 4. Clinically and electrocardiographically unremarkable Lexiscan stress test. 5. Myocardial perfusion imaging study to be reported by Radiology. Protocol: Lexiscan Stress ECG Details Stage: REST Duration (min): 1 min : 18 sec HR (bpm): 78 SBP (mmHg): 133 DBP (mmHg): 94 Stage: REST Duration (min): 7 min : 14 sec HR (bpm): 76 SBP (mmHg): 133 DBP (mmHg): 94 Stage: STAGE 1 Duration (min): 1 min : 0 sec HR (bpm): 84 SBP (mmHg): 146 DBP (mmHg): 102 Stage: RECOVERY Duration (min): 1 min : 0 sec HR (bpm): 96 SBP (mmHg): 146 DBP (mmHg): 102 Stage: RECOVERY Duration (min): 2 min : 0 sec HR (bpm): 88 SBP (mmHg): 146 DBP (mmHg): 102 Stage: RECOVERY Duration (min): 3 min : 0 sec HR (bpm): 89 SBP (mmHg): 157 DBP (mmHg): 95 Stage: RECOVERY Duration (min): 3 min : 6 sec HR (bpm): 91 SBP (mmHg): 157 DBP (mmHg): 95 Rest HR: 76 bpm Peak HR: 97 bpm Rest Sys BP: 133 mmHg Peak Sys BP: 157 mmHg Max Pred HR: 142 bpm % Max Pred HR: 68 % Target HR: 121 bpm Max RPP: 15,229 bpm*mmHg Termination Reason: Completed protocol Cardiac Symptoms: None Total Time: 1 min : 0 sec Rest Fajardo BP: 94 mmHg Peak Fajardo BP: 95 mmHg Total Dose: 0.4 mg Resting ECG Sinus rhythm with low QRS voltage. Stress ECG No ST or T-wave abnormalities following Lexiscan injection. Arrhythmias None. Report Signatures
--- NOTE | 2023-10-07 12:06 | PM.PNCARD ---
Progress Note: A&P Assessment and Plan (1) Chest tightness: Code(s): R07.89 - Other chest pain Status: Acute Assessment and Plan: Atypical chest pain that is resolved. She was found to have esophageal stricture on EGD today which is most likely the cause of her pain. She does have risk factors for heart disease, though. Lexiscan stress test was performed today and was negative for any ischemia. Given her known aortic atherosclerosis, will start patient on ASA 81mg once daily and change her home Pravastatin to a high intensity statin. Echocardiogram showed normal LVSF, grade I diastolic dysfunction, mild valvular disease. Cardiology will sign off. Please call with questions. (2) Pure hypercholesterolemia, unspecified: Code(s): E78.00 - Pure hypercholesterolemia, unspecified Status: Acute Assessment and Plan: she has been shifted to a high intensity statin (3) Hypertension: Qualifiers: Hypertension type: primary hypertension Qualified Code(s): I10 - Essential (primary) hypertension Code(s): I10 - Essential (primary) hypertension Status: Acute Assessment and Plan: Stable, continue home meds (4) Atherosclerosis of aorta: Code(s): I70.0 - Atherosclerosis of aorta Status: Acute Assessment and Plan: Continue ASA, high intensity statin Subjective Date/time seen: 10/07/23 12:06 Interval history: Cardiology follow up for chest pain Feeling better today. Not having any chest pain. Exam Const: General: comfortable and no acute distress HENMT: Mouth: Yes moist mucous membranes Eyes: General: appearance normal, both eyes and all related structures Sclera: sclerae normal Neck: Neck: supple Chest: Other: She does have some reproducible chest wall tenderness Resp: Effort & Inspection: normal respiratory effort Auscultation: clear to auscultation bilaterally Cardio: Rate: regular rate Rhythm: regular rhythm Skin: General skin exam: normal color Neuro: Speech: normal speech Extrem: General: normal to inspection Psych: Mental Status: mental status grossly normal Affect: normal affect Objective Data Vital Signs Vital Signs: Vital Signs - 24 hr 10/06/23 16:00 10/06/23 16:00 10/06/23 16:00 Temperature 36.8 C Pulse Rate 79 83 Respiratory Rate 18 Blood Pressure 115/53 L Pulse Oximetry 95 Oxygen Delivery Room Air 10/06/23 18:00 10/06/23 19:40 10/06/23 23:55 Temperature 36.4 C 36.3 C L Pulse Rate 70 73 79 Respiratory Rate 18 18 Blood Pressure 149/73 H 123/61 Pulse Oximetry 98 98 Oxygen Delivery 10/06/23 20:00 10/06/23 22:00 10/07/23 00:00 Temperature Pulse Rate 72 69 79 Respiratory Rate Blood Pressure Pulse Oximetry Oxygen Delivery 10/06/23 20:00 10/07/23 00:00 10/07/23 02:00 Temperature Pulse Rate 69 Respiratory Rate Blood Pressure Pulse Oximetry 98 98 Oxygen Delivery Room Air Room Air 10/07/23 04:00 10/07/23 04:00 10/07/23 04:00 Temperature 36.6 C Pulse Rate 77 79 Respiratory Rate 18 Blood Pressure 140/71 Pulse Oximetry 98 96 Oxygen Delivery Room Air 10/07/23 07:33 10/07/23 07:30 Temperature 36.4 C Pulse Rate 85 Respiratory Rate 18 Blood Pressure 151/70 H Pulse Oximetry 98 98 Oxygen Delivery Room Air Intake/Output Intake/Output: Intake & Output 10/04/23 10/05/23 10/06/23 10/07/23 23:59 23:59 23:59 23:59 Intake Total 569 640 0728 Output Total 225 600 500 Balance 15 320 1060 Meds/Results Medications: Active Medications Generic Name Dose Route Start Last Admin Trade Name Giana PRN Reason Stop Dose Admin Acetaminophen 650 mg 10/04/23 21:04 10/06/23 15:48 Acetaminophen 325 Mg Tablet PO 650 mg Q6H PRN Administration Mild Pain (1-3) or Fever Aspirin 81 mg 10/05/23 09:50 10/07/23 09:12 Aspirin 81 Mg Enteric Tablet PO 81 mg QAM CARMEN Administration [place]
[2023-10-07] MEDS: LACTATED RINGERS 1,000 ML 150 ML IV CONT (12:36)
--- NOTE | 2023-10-07 13:06 | WPDANESEPPF ---
Anes - Initial Pre Proc Eval Procedure: Operation Date: 10/07/23 13:30 Proposed Procedures p Esophagogastroduodenoscopy - Charlie Escobar MD Date/Time: 10/07/23 13:06 Surgeon: Daiana Yanes MD Pre Op Diagnosis: Chest tightness Patient Data Age: 78 Gender: F Height: 1.65 m Weight: 99.2 kg Last Vital Signs Temp 96.3 F L 10/07/23 12:34 Pulse 74 10/07/23 12:34 Resp 16 10/07/23 12:34 BP 144/67 H 10/07/23 12:34 Pulse Ox 97 10/07/23 12:34 O2 Del Method Room Air 10/07/23 12:34 Allergies Allergy/AdvReac Type Severity Reaction Status Date / Time codeine Allergy Severe Hallucinati Verified 10/07/23 12:33 ng Home Medications Medication Instructions Recorded Confirmed Type vit C,E,zinc,copper-bdpoq2v 250 1 cap PO DAILY 06/11/20 10/04/23 History mg-lutein 5 mg-zeaxanthin 1 mg capsule (Ocuvite Adult 50 Plus) vitamin B complex (B 1 tablet PO DAILY 06/11/20 10/04/23 History Complex-Vitamin B12 tablet) cholecalciferol (vitamin D3) 50 50 mcg PO DAILY 02/07/23 10/04/23 History mcg (2,000 unit) capsule celecoxib 100 mg capsule 100 mg PO DAILY #90 caps 03/29/23 10/04/23 Rx indapamide 1.25 mg tablet 1.25 mg PO DAILY #90 tabs 03/29/23 10/04/23 Rx losartan 100 mg tablet 100 mg PO DAILY #90 tabs 03/29/23 10/04/23 Rx pantoprazole 40 mg tablet,delayed 40 mg PO DAILY #90 tabs 03/29/23 10/04/23 Rx release ropinirole 1 mg tablet 1 mg PO HS #90 tabs 03/29/23 10/04/23 Rx trazodone 50 mg tablet 50 mg PO HS #90 tabs 03/29/23 10/04/23 Rx verapamil 240 mg tablet,extended 240 mg PO DAILY #90 tabs 03/29/23 10/04/23 Rx release citalopram 10 mg tablet 20 mg PO DAILY #90 tabs 09/30/23 10/04/23 Rx oxybutynin chloride 5 mg tablet 5 mg PO BID #90 tabs 09/30/23 10/04/23 Rx pravastatin 20 mg tablet 20 mg PO DAILY #90 tabs 09/30/23 10/05/23 Rx Patient hx anesthesia problems: none Family hx anesthesia problems: none Results Review: All pre-operative results and documents have been reviewed as part of the pre-operative evaluation. [facility] Past Medical History Medical History Asthma Atherosclerosis of aorta Eczema Gastroesophageal reflux disease Generalized osteoarthrosis, involving multiple sites Hypertension Major depressive disorder, recurrent, in partial remission Occlusion and stenosis of bilateral carotid arteries Other intervertebral disc degeneration, lumbar region Pure hypercholesterolemia, unspecified Restless leg syndrome Urge incontinence Surgical History Surgical History History of arthroscopy of right shoulder (11/2010) History of breast biopsy (1984) History of cataract extraction History of hernia surgery (1979) History of hysterectomy (1978) History of laparoscopic cholecystectomy (08/2005) History of lumbar discectomy (05/2008) History of Blaine fundoplication (02/2018) History of total left knee replacement (11/21/18) History of total right knee replacement (01/2012) Family History Family History Sibling Carcinoma of colon Mother Heart disease Father Heart disease Other Diabetes mellitus Family history of kidney disease Family history of malignant neoplasm Hypertension Social History Social History Social History: Surrogate medical decision maker: Alonzo Ordaz, hillary. Code status: Full code. Smoking status: Never smoker Alcohol intake: never Substance use: never Substance use type: does not use Lack of Transportation: No Lack of Food: Never True Current Housing: I Have Housing Concerned About Future Housing: No Difficulty Paying Gas/Electric Bills: No Difficulty Paying for Meds: No Currently Unemployed: No Education: High School Diploma/GED Difficulty w/ Childcare or Family Care: No Living arrangements: with fa
[2023-10-07] MEDS: BISACODYL 5 MG TABLET EC 15 MG PO (17:44)
[2023-10-07] MEDS: polyethylene glycoL 3350 238 GM BOTTLE PO (17:44)
--- NOTE | 2023-10-07 19:20 | PC.NURSE ---
This patient, Amber Ordaz, was received from IMU on 10/07/23 at 1900. Report received from SHEREE Mcdowell. Patient/family oriented to unit policies and routines
--- NOTE | 2023-10-07 19:51 | PC.NURSE ---
This patient, Amber Ordaz, was transferred to [ [address] [place] [address] ] on 10/07/23 at 1830. Personal belongings sent with patient. Report given to [ SHEREE Kramer]. Appropriate documentation sent with patient.
[2023-10-07] MEDS: rOPINIRole HCL 1 MG TABLET PO (20:13)
[2023-10-07] MEDS: traZODone HCL 50 MG TABLET PO (20:13)
[2023-10-08] VITALS (7 sets, daily range): BP systolic 102–152; BP diastolic 50–90; PULSE 68–86; RESP 13–26; TEMP 36.1–36.7; O2SAT 97–100
[2023-10-08] MEDS: CITALOPRAM HYDROBROMIDE 20 MG TABLET PO (09:34)
[2023-10-08] MEDS: ASPIRIN 81 MG ENTERIC TABLET PO (09:34)
[2023-10-08] MEDS: VITAMIN B COMPLEX CAPSULE 1 CAP PO (09:34)
[2023-10-08] MEDS: CHOLECALCIFEROL 1,000 UNITS TABLET 2000 UNITS PO (09:34)
[2023-10-08] MEDS: PANTOPRAZOLE 40 MG TABLET PO (09:34)
[2023-10-08] MEDS: OPTI-GEN TAB 1 TABLET PO (09:34)
[2023-10-08] MEDS: LOSARTAN POTASSIUM 100 MG TABLET PO (09:34)
[2023-10-08] MEDS: ATORVASTATIN 40 MG TABLET 80 MG PO (09:34)
[2023-10-08] MEDS: oxyBUTYnin CHLORIDE 5 MG TABLET PO ×2 (09:34→16:41)
[2023-10-08] MEDS: VERAPAMIL HCL ER 240 MG TABLET.ER PO (09:34)
[2023-10-08] MEDS: CELECOXIB 100 MG CAPSULE PO (09:34)
[2023-10-08] MEDS: INDAPAMIDE 1.25 MG TABLET PO (09:38)
[2023-10-08] MEDS: LACTATED RINGERS 1,000 ML 150 ML IV CONT (13:07)
--- NOTE | 2023-10-08 13:44 | WPDANESEPPF ---
Anes - Initial Pre Proc Eval Procedure: Operation Date: 10/07/23 13:30 Proposed Procedures p Esophagogastroduodenoscopy - Charlie Escobar MD Operation Date: 10/08/23 13:30 Proposed Procedures p Colonoscopy - Charlie Escobar MD Date/Time: 10/08/23 13:44 Surgeon: Daiana Yanes MD Pre Op Diagnosis: Chest tightness Patient Data Age: 78 Gender: F Height: 1.65 m Weight: 101.7 kg Last Vital Signs Temp 97 F L 10/08/23 12:57 Pulse 73 10/08/23 12:57 Resp 18 10/08/23 12:57 BP 134/74 10/08/23 12:57 Pulse Ox 97 10/08/23 12:57 O2 Del Method Room Air 10/08/23 12:57 Allergies Allergy/AdvReac Type Severity Reaction Status Date / Time codeine Allergy Severe Hallucinati Verified 10/08/23 12:54 ng Home Medications Medication Instructions Recorded Confirmed Type vit C,E,zinc,copper-jyddi4m 250 1 cap PO DAILY 06/11/20 10/04/23 History mg-lutein 5 mg-zeaxanthin 1 mg capsule (Ocuvite Adult 50 Plus) vitamin B complex (B 1 tablet PO DAILY 06/11/20 10/04/23 History Complex-Vitamin B12 tablet) cholecalciferol (vitamin D3) 50 50 mcg PO DAILY 02/07/23 10/04/23 History mcg (2,000 unit) capsule celecoxib 100 mg capsule 100 mg PO DAILY #90 caps 03/29/23 10/04/23 Rx indapamide 1.25 mg tablet 1.25 mg PO DAILY #90 tabs 03/29/23 10/04/23 Rx losartan 100 mg tablet 100 mg PO DAILY #90 tabs 03/29/23 10/04/23 Rx pantoprazole 40 mg tablet,delayed 40 mg PO DAILY #90 tabs 03/29/23 10/04/23 Rx release ropinirole 1 mg tablet 1 mg PO HS #90 tabs 03/29/23 10/04/23 Rx trazodone 50 mg tablet 50 mg PO HS #90 tabs 03/29/23 10/04/23 Rx verapamil 240 mg tablet,extended 240 mg PO DAILY #90 tabs 03/29/23 10/04/23 Rx release citalopram 10 mg tablet 20 mg PO DAILY #90 tabs 09/30/23 10/04/23 Rx oxybutynin chloride 5 mg tablet 5 mg PO BID #90 tabs 09/30/23 10/04/23 Rx pravastatin 20 mg tablet 20 mg PO DAILY #90 tabs 09/30/23 10/05/23 Rx Patient hx anesthesia problems: none Family hx anesthesia problems: none Results Review: All pre-operative results and documents have been reviewed as part of the pre-operative evaluation. [facility] Past Medical History Medical History Asthma Atherosclerosis of aorta Eczema Gastroesophageal reflux disease Generalized osteoarthrosis, involving multiple sites Hypertension Major depressive disorder, recurrent, in partial remission Occlusion and stenosis of bilateral carotid arteries Other intervertebral disc degeneration, lumbar region Pure hypercholesterolemia, unspecified Restless leg syndrome Urge incontinence Surgical History Surgical History History of arthroscopy of right shoulder (11/2010) History of breast biopsy (1984) History of cataract extraction History of hernia surgery (1979) History of hysterectomy (1978) History of laparoscopic cholecystectomy (08/2005) History of lumbar discectomy (05/2008) History of Blaine fundoplication (02/2018) History of total left knee replacement (11/21/18) History of total right knee replacement (01/2012) Family History Family History Sibling Carcinoma of colon Mother Heart disease Father Heart disease Other Diabetes mellitus Family history of kidney disease Family history of malignant neoplasm Hypertension Social History Social History Social History: Surrogate medical decision maker: Alonzo Ordaz, hillary. Code status: Full code. Smoking status: Never smoker Alcohol intake: never Substance use: never Substance use type: does not use Lack of Transportation: No Lack of Food: Never True Current Housing: I Have Housing Concerned About Future Housing: No Difficulty Paying Gas/Electric Bills: No Difficulty Paying for Meds: No Currently Unemployed: No Education: High School
--- NOTE | 2023-10-08 15:55 | PM.IMPN ---
Progress Note: A&P Assessment and Plan (1) Chest tightness: Code(s): R07.89 - Other chest pain Status: Acute Assessment and Plan: Patient presented with complaints of chest tightness. Troponins negative. EKG showing normal sinus rhythm, LVH with nonspecific ST-T wave changes. Echocardiogram showed EF of 65-70% with grade 1 diastolic dysfunction and mild valvular disease. Cardiology consulted and appreciate their input. Lexiscan stress test showed no ST or T-wave abnormalities. Nuclear images showed no definitive ischemia or infarct. Normal EF. Given her known atherosclerotic disease, plan is to start her on baby aspirin and high-intensity statin. (2) Dysphagia: Code(s): R13.10 - Dysphagia, unspecified Status: Acute Assessment and Plan: Patient has been having increasing dysphagia lately. She has a history of esophageal stricture dilated about 5 years ago. A barium swallow also showed dysmotility in the past. GI consulted and appreciate their input. EGD showed moderate stenosis of the distal esophagus. This was dilated. She also was noted to have tertiary contractions consistent with esophageal motility disorder. She was able to eat after the procedure solid foods and tolerated this well. (3) Colonic stricture: Code(s): K56.699 - Other intestinal obstruction unspecified as to partial versus complete obstruction Status: Acute Assessment and Plan: Patient had a CTA of the chest/abdomen/pelvis on admission which showed no aneurysm or dissection of the aorta but did show a moderate size sliding hernia and a relatively abrupt caliber change of the colon at the splenic flexure. GI was made aware of this. Colonoscopy was recommended and was performed earlier today. Colonoscopy shows a moderate amount of retained stool throughout the colon with a mild benign-appearing stenosis at the splenic flexure. This appears to be a slight twist as if partial volvulus. GI recommends repeat colonoscopy after additional prep. (4) Hypertension: Qualifiers: Hypertension type: primary hypertension Qualified Code(s): I10 - Essential (primary) hypertension Code(s): I10 - Essential (primary) hypertension Status: Acute Assessment and Plan: Patient's blood pressure was reviewed on 10/08 Blood pressure remains reasonably well controlled. Will continue current medications. (5) Gastroesophageal reflux disease: Code(s): K21.9 - Gastro-esophageal reflux disease without esophagitis Status: Acute Assessment and Plan: Stable. Continue Protonix Plan DVT prophylaxis -SCDs Code status -full Subjective Date/time seen: 10/08/23 15:55 Interval history: 78yo female with HTN, HLD and CKD here for chest pain. Assuming care. Chart reviewed. Patient had a colonoscopy 5-7 years ago which was negative. No further chest pain. No shortness of breath. No nausea or vomiting. She has been up walking in the room. Exam Narrative: AF 97.0 124/67 72 26 99% ra Gen - NARD Chest - CTA bilaterally, nml RR CV - RRR S1/S2 Abd - Soft, NT/ND, Positive BS Ext - No pedal edema Psych - Nml mood and affect Skin - Warm and dry Objective Data Vital Signs Vital Signs: Vital Signs - 24 hr 10/07/23 16:00 10/07/23 20:00 10/07/23 20:00 Temperature 98.0 F 97.7 F Pulse Rate 86 76 Respiratory Rate 20 16 Blood Pressure 103/41 L 105/55 L Pulse Oximetry 97 98 Oxygen Delivery Room Air 10/08/23 06:00 10/08/23 12:57 10/08/23 14:36 Temperature 98.0 F 97 F L Pulse Rate 76 73 80 Respiratory Rate 16 18 19 Blood Pressure 125/50 L 134/74 102/64 Pulse Oximetry 100 97 97 Oxygen Delivery Room Air Room Air 10/08/23 14:46 10/08/23 14:56 10/08/23 08:00 Temperature Pulse Rate 86 72 Respiratory Rate 21 H 26 H Blood Pressure 122/90 124/67 Pulse Oximetry 99 99 Oxygen Delivery Room Air Room Air Room Air Intake/Output
[2023-10-08] MEDS: polyethylene glycoL 3350 238 GM BOTTLE PO (17:55)
[2023-10-08] MEDS: rOPINIRole HCL 1 MG TABLET PO (20:37)
[2023-10-08] MEDS: BISACODYL 5 MG TABLET EC 10 MG PO (20:37)
[2023-10-08] MEDS: traZODone HCL 50 MG TABLET PO (20:37)
[2023-10-09] VITALS (7 sets, daily range): BP systolic 94–144; BP diastolic 46–63; PULSE 67–86; RESP 13–22; TEMP 36.1–36.4; O2SAT 93–98
[2023-10-09] MEDS: MAGNESIUM CITRATE 300 ML BTL 150 ML PO (05:39)
[2023-10-09 06:51] LABS: Anion Gap 11 mmol/L (8-16); Blood Urea Nitrogen 11 mg/dL (7-17); Carbon Dioxide 20 mmol/L (22-30); Chloride 104 mmol/L (98-107); Estimated CRCL calculation 68 ml/min; Estimated Glomerular Filt Rate > 60; Glucose 103 mg/dL (65-110); Potassium 4.2 mmol/L (3.4-5.0); Sodium 135 mmol/L (137-145)
[2023-10-09] MEDS: INDAPAMIDE 1.25 MG TABLET PO (08:55)
[2023-10-09] MEDS: VERAPAMIL HCL ER 240 MG TABLET.ER PO (08:55)
[2023-10-09] MEDS: LOSARTAN POTASSIUM 100 MG TABLET PO (08:56)
[2023-10-09] MEDS: CITALOPRAM HYDROBROMIDE 20 MG TABLET PO (08:56)
[2023-10-09] MEDS: BISACODYL 5 MG TABLET EC 15 MG PO (10:38)
[2023-10-09] MEDS: LACTATED RINGERS 1,000 ML 150 ML IV CONT (14:21)
--- NOTE | 2023-10-09 15:03 | WPDANESEPPF ---
Anes - Initial Pre Proc Eval Procedure: Operation Date: 10/07/23 13:30 Proposed Procedures p Esophagogastroduodenoscopy - Charlie Escobar MD Operation Date: 10/08/23 13:30 Proposed Procedures p Colonoscopy - Charlie Escobar MD Operation Date: 10/09/23 15:30 Proposed Procedures p Colonoscopy - Charlie Escobar MD Date/Time: 10/09/23 15:03 Surgeon: Daiana Yanes MD Pre Op Diagnosis: Chest tightness Patient Data Age: 78 Gender: F Height: 1.65 m Weight: 102 kg Last Vital Signs Temp 97.2 F L 10/09/23 14:18 Pulse 80 10/09/23 14:18 Resp 18 10/09/23 14:18 BP 140/63 10/09/23 14:18 Pulse Ox 97 10/09/23 14:18 O2 Del Method Room Air 10/09/23 14:18 Allergies Allergy/AdvReac Type Severity Reaction Status Date / Time codeine Allergy Severe Hallucinati Verified 10/09/23 14:16 ng Home Medications Medication Instructions Recorded Confirmed Type vit C,E,zinc,copper-[id number] 250 1 cap PO DAILY 06/11/20 10/04/23 History mg-lutein 5 mg-zeaxanthin 1 mg capsule (Ocuvite Adult 50 Plus) vitamin B complex (B 1 tablet PO DAILY 06/11/20 10/04/23 History Complex-Vitamin B12 tablet) cholecalciferol (vitamin D3) 50 50 mcg PO DAILY 02/07/23 10/04/23 History mcg (2,000 unit) capsule celecoxib 100 mg capsule 100 mg PO DAILY #90 caps 03/29/23 10/04/23 Rx indapamide 1.25 mg tablet 1.25 mg PO DAILY #90 tabs 03/29/23 10/04/23 Rx losartan 100 mg tablet 100 mg PO DAILY #90 tabs 03/29/23 10/04/23 Rx pantoprazole 40 mg tablet,delayed 40 mg PO DAILY #90 tabs 03/29/23 10/04/23 Rx release ropinirole 1 mg tablet 1 mg PO HS #90 tabs 03/29/23 10/04/23 Rx trazodone 50 mg tablet 50 mg PO HS #90 tabs 03/29/23 10/04/23 Rx verapamil 240 mg tablet,extended 240 mg PO DAILY #90 tabs 03/29/23 10/04/23 Rx release citalopram 10 mg tablet 20 mg PO DAILY #90 tabs 09/30/23 10/04/23 Rx oxybutynin chloride 5 mg tablet 5 mg PO BID #90 tabs 09/30/23 10/04/23 Rx pravastatin 20 mg tablet 20 mg PO DAILY #90 tabs 09/30/23 10/05/23 Rx Laboratory Tests 10/09/23 06:09 Sodium 135 L mmol/L (137-145) Potassium 4.2 mmol/L (3.4-5.0) Chloride 104 mmol/L (98-107) Carbon Dioxide 20 L mmol/L (22-30) Anion Gap 11 mmol/L (8-16) BUN 11 D mg/dL (7-17) Creatinine 0.70 mg/dL (0.7-1.0) Estim Creat Clear Calc 68 ml/min Estimated GFR > 60 (59 - ) Glucose 103 mg/dL (65-110) Calcium 9.0 mg/dL (8.4-10.2) Patient hx anesthesia problems: none Family hx anesthesia problems: none Results Review: All pre-operative results and documents have been reviewed as part of the pre-operative evaluation. [facility] Past Medical History Medical History Asthma Atherosclerosis of aorta Eczema Gastroesophageal reflux disease Generalized osteoarthrosis, involving multiple sites Hypertension Major depressive disorder, recurrent, in partial remission Occlusion and stenosis of bilateral carotid arteries Other intervertebral disc degeneration, lumbar region Pure hypercholesterolemia, unspecified Restless leg syndrome Urge incontinence Surgical History Surgical History History of arthroscopy of right shoulder (11/2010) History of breast biopsy (1984) History of cataract extraction History of hernia surgery (1979) History of hysterectomy (1978) History of laparoscopic cholecystectomy (08/2005) History of lumbar discectomy (05/2008) History of [place] fundoplication (02/2018) History of total left knee replacement (11/21/18) History of total right knee replacement (01/2012) Family History Family History Sibling Carcinoma of colon Mother Heart disease Father Heart disease Other Diabetes mellitus Family history of kidney disease Family history of malignant neoplasm Hypertension Social History Social
--- NOTE | 2023-10-09 15:54 | PM.IMPN ---
Progress Note: A&P Assessment and Plan (1) Chest tightness: Code(s): R07.89 - Other chest pain Status: Acute Assessment and Plan: Patient presented with complaints of chest tightness. Troponins negative. EKG showing normal sinus rhythm, LVH with nonspecific ST-T wave changes. Echocardiogram showed EF of 65-70% with grade 1 diastolic dysfunction and mild valvular disease. Cardiology consulted and appreciate their input. Lexiscan stress test showed no ST or T-wave abnormalities. Nuclear images showed no definitive ischemia or infarct. Normal EF. Given her known atherosclerotic disease, plan is to start her on baby aspirin and high-intensity statin. (2) Dysphagia: Code(s): R13.10 - Dysphagia, unspecified Status: Acute Assessment and Plan: Patient has been having increasing dysphagia lately. She has a history of esophageal stricture dilated about 5 years ago. A barium swallow also showed dysmotility in the past. GI consulted and appreciate their input. EGD showed moderate stenosis of the distal esophagus. This was dilated. She also was noted to have tertiary contractions consistent with esophageal motility disorder. She was able to eat after the procedure solid foods and tolerated this well. (3) Colonic stricture: Code(s): K56.699 - Other intestinal obstruction unspecified as to partial versus complete obstruction Status: Acute Assessment and Plan: Patient had a CTA of the chest/abdomen/pelvis on admission which showed no aneurysm or dissection of the aorta but did show a moderate size sliding hernia and a relatively abrupt caliber change of the colon at the splenic flexure. GI was made aware of this. Colonoscopy was recommended and was performed earlier today. Colonoscopy shows a moderate amount of retained stool throughout the colon with a mild benign-appearing stenosis at the splenic flexure. This appears to be a slight twist as if partial volvulus. GI recommends repeat colonoscopy after additional prep. (4) Hypertension: Qualifiers: Hypertension type: primary hypertension Qualified Code(s): I10 - Essential (primary) hypertension Code(s): I10 - Essential (primary) hypertension Status: Acute Assessment and Plan: Patient's blood pressure was reviewed on 10/09 Blood pressure remains reasonably well controlled. Will continue current medications. (5) Gastroesophageal reflux disease: Code(s): K21.9 - Gastro-esophageal reflux disease without esophagitis Status: Acute Assessment and Plan: Stable. Continue Protonix Plan DVT prophylaxis -SCDs Code status -full Subjective Date/time seen: 10/09/23 15:54 Interval history: 78yo female with HTN, HLD and CKD here for chest pain. No overnight events noted. No chest pain or shortness of breath. No nausea, vomiting. No fevers or chills. With significant diarrhea. Review of Systems Review of Systems: 12 point review of systems was assessed and was negative except as noted in the HPI Exam Narrative: General: No acute distress, alert and oriented per baseline HEENT: Atraumatic, normocephalic, mucous membranes moist CV: Regular rate and rhythm, S1, S2 Lungs: Clear to auscultation bilaterally, no rales or crackles noted, no wheezes, good air entry Abdomen: Soft, nontender, nondistended Extremities: Normal to inspection Skin: No rashes noted, no lesions or wounds seen Psych: Euthymic, normal affect Objective Data Vital Signs Vital Signs: Vital Signs - 24 hr 10/08/23 15:57 10/08/23 21:27 10/08/23 20:00 Temperature 97.3 F L 97.2 F L Pulse Rate 71 68 Respiratory Rate 16 13 Blood Pressure 152/71 H 149/79 H Pulse Oximetry 100 99 Oxygen Delivery Room Air 10/09/23 06:00 10/09/23 08:50 10/09/23 14:18 Temperature 96.9 F L 97.2 F L Pulse Rate 68 80 Respiratory Rate 13 18 Blood Pressure 144/56 H 140/63 Pu
[2023-10-09] MEDS: oxyBUTYnin CHLORIDE 5 MG TABLET PO (17:14)
[2023-10-09] MEDS: traZODone HCL 50 MG TABLET PO (22:02)
[2023-10-09] MEDS: rOPINIRole HCL 1 MG TABLET PO (22:02)
[2023-10-10 05:20] VITALS: BP 109/81; PULSE 75; RESP 17; TEMP 36.2; O2SAT 96
[2023-10-10 08:20] VITALS: O2SAT 98
[2023-10-10] MEDS: VERAPAMIL HCL ER 240 MG TABLET.ER PO (08:20)
[2023-10-10] MEDS: PANTOPRAZOLE 40 MG TABLET PO (08:20)
[2023-10-10] MEDS: ATORVASTATIN 40 MG TABLET 80 MG PO (08:20)
[2023-10-10] MEDS: CELECOXIB 100 MG CAPSULE PO (08:20)
[2023-10-10] MEDS: LOSARTAN POTASSIUM 100 MG TABLET PO (08:20)
[2023-10-10] MEDS: INDAPAMIDE 1.25 MG TABLET PO (08:20)
[2023-10-10] MEDS: VITAMIN B COMPLEX CAPSULE 1 CAP PO (08:20)
[2023-10-10] MEDS: ASPIRIN 81 MG ENTERIC TABLET PO (08:20)
[2023-10-10] MEDS: CHOLECALCIFEROL 1,000 UNITS TABLET 2000 UNITS PO (08:20)
[2023-10-10] MEDS: CITALOPRAM HYDROBROMIDE 20 MG TABLET PO (08:20)
[2023-10-10] MEDS: OPTI-GEN TAB 1 TABLET PO (08:20)
[2023-10-10] MEDS: oxyBUTYnin CHLORIDE 5 MG TABLET PO (08:20)
--- NOTE | 2023-10-10 10:51 | PCNWS ---
Weekly nutritional screen. Patient is tolerating current Regular diet with adequate intake at 100% most all meals. No weight loss reported. No nutritional needs at this time.
--- NOTE | 2023-10-10 11:14 | WPDANESPN ---
Anes - Prog Note Post-Op Date/Time: 10/10/23 11:14 Cardiovascular status: normal Respiratory status: normal Airway patency: baseline Mental status: baseline Post-Op hydration status: normal Vital Signs: Last Vital Signs Temp 36.2 C L 10/10/23 05:20 Pulse 75 10/10/23 05:20 Resp 17 10/10/23 05:20 BP 109/81 10/10/23 05:20 Pulse Ox 96 10/10/23 05:20 O2 Del Method Room Air 10/09/23 16:16 Pain Score (VAS): 01/04 I/O: Intake & Output 10/09/23 10/10/23 10/10/23 23:59 07:59 15:59 Intake Total 770 475 Output Total 0 Balance 770 0 475 Laboratory Tests 10/04/23 13:30 10/09/23 06:09 Post-procedural complaints: none Patient Feedback: Patient satisfied with anesthetic care.
--- NOTE | 2023-10-10 13:26 | PM.DS ---
DS: Admitting Diagnosis Discharge Date 10/10/23 Admitting Diagnosis chest pain DS: Discharge Diagnosis Discharge Diagnosis (1) Chest tightness: Code(s): R07.89 - Other chest pain Status: Acute Assessment and Plan: Patient presented with complaints of chest tightness. Troponins negative. EKG showing normal sinus rhythm, LVH with nonspecific ST-T wave changes. Echocardiogram showed EF of 65-70% with grade 1 diastolic dysfunction and mild valvular disease. Cardiology consulted and appreciate their input. Lexiscan stress test showed no ST or T-wave abnormalities. Nuclear images showed no definitive ischemia or infarct. Normal EF. Given her known atherosclerotic disease, plan is to start her on baby aspirin and high-intensity statin. (2) Dysphagia: Code(s): R13.10 - Dysphagia, unspecified Status: Acute Assessment and Plan: Patient has been having increasing dysphagia lately. She has a history of esophageal stricture dilated about 5 years ago. A barium swallow also showed dysmotility in the past. GI consulted and appreciate their input. EGD showed moderate stenosis of the distal esophagus. This was dilated. She also was noted to have tertiary contractions consistent with esophageal motility disorder. She was able to eat after the procedure solid foods and tolerated this well. (3) Colonic stricture: Code(s): K56.699 - Other intestinal obstruction unspecified as to partial versus complete obstruction Status: Acute Assessment and Plan: Patient had a CTA of the chest/abdomen/pelvis on admission which showed no aneurysm or dissection of the aorta but did show a moderate size sliding hernia and a relatively abrupt caliber change of the colon at the splenic flexure. GI was made aware of this. Colonoscopy was recommended and was performed earlier today. Colonoscopy shows a moderate amount of retained stool throughout the colon with a mild benign-appearing stenosis at the splenic flexure. This appears to be a slight twist as if partial volvulus. GI recommends repeat colonoscopy after additional prep. (4) Hypertension: Qualifiers: Hypertension type: primary hypertension Qualified Code(s): I10 - Essential (primary) hypertension Code(s): I10 - Essential (primary) hypertension Status: Acute Assessment and Plan: Patient's blood pressure was reviewed on 10/09 Blood pressure remains reasonably well controlled. Will continue current medications. (5) Gastroesophageal reflux disease: Code(s): K21.9 - Gastro-esophageal reflux disease without esophagitis Status: Acute Assessment and Plan: Stable. Continue Protonix Plan DVT prophylaxis -SCDs Code status -full DS: Summary Hospital Course Hospital Course: 78yo female with HTN, HLD and CKD here for chest pain. Patient presented with complaints of chest tightness. Troponins negative.? EKG showing normal sinus rhythm, LVH with nonspecific ST-T wave changes. Echocardiogram showed EF of 65-70% with grade 1 diastolic dysfunction and mild valvular disease. Cardiology consulted and appreciate their input. Lexiscan stress test showed no ST or T-wave abnormalities.? Nuclear images showed no definitive ischemia or infarct.? Normal EF. Given her known atherosclerotic disease, plan is to start her on baby aspirin and high-intensity statin. Patient has been having increasing dysphagia lately.? She has a history of esophageal stricture dilated about 5 years ago.? A barium swallow also showed dysmotility in the past. GI consulted and appreciate their input. EGD showed moderate stenosis of the distal esophagus.? This was dilated.? She also was noted to have tertiary contractions consistent with esophageal motility disorder. She was able to eat after the procedure solid foods and tolerated this well. Patient had a CTA of the chest/abdomen/pelvis on admission which showed no aneurysm or disse
== END 2023-10-10 13:45 | disposition home or self-care (01) ==
LOC: ANHED 16:05 → ANHIMU 17:25 → ANH3MEDSUR 10-07 18:54
PROVIDERS: Emergency Medicine; Internal Medicine; Internal Medicine Gastroenterology; Physician Assistant; Admitting Provider Internal Medicine; Emergency Provider Physician Assistant; PCP Family Medicine; Visit Provider Internal Medicine
PROC: 0DJ08ZZ Inspection of Upper Intestinal Tract, Via Natural or Artificial Opening Endoscopic (ICD-10-PCS; CPT 43235; principal; 2023-10-07 13:30)
PROC: 0DJD8ZZ Inspection of Lower Intestinal Tract, Via Natural or Artificial Opening Endoscopic (ICD-10-PCS; CPT 45378; principal; 2023-10-08 13:30)
DX: K22.2 Esophageal obstruction (principal); K22.4 Dyskinesia of esophagus; K56.609 Unspecified intestinal obstruction, unspecified as to partial versus complete obstruction; R93.3 Abnormal findings on diagnostic imaging of other parts of digestive tract; K21.9 Gastro-esophageal reflux disease without esophagitis; R05.9 Cough, unspecified; R07.89 Other chest pain; N39.41 Urge incontinence; I13.10 Hypertensive heart and chronic kidney disease without heart failure, with stage 1 through stage 4 chronic kidney disease, or unspecified chronic kidney disease; N18.9 Chronic kidney disease, unspecified; G25.81 Restless legs syndrome; E78.00 Pure hypercholesterolemia, unspecified; J45.909 Unspecified asthma, uncomplicated; I70.0 Atherosclerosis of aorta; I34.0 Nonrheumatic mitral (valve) insufficiency; I37.1 Nonrheumatic pulmonary valve insufficiency; R00.0 Tachycardia, unspecified; D72.829 Elevated white blood cell count, unspecified; I49.40 Unspecified premature depolarization; F32.9 Major depressive disorder, single episode, unspecified; E66.9 Obesity, unspecified; Z68.36 Body mass index [BMI] 36.0-36.9, adult; K44.9 Diaphragmatic hernia without obstruction or gangrene; Z79.1 Long term (current) use of non-steroidal anti-inflammatories (NSAID); Z79.899 Other long term (current) drug therapy; Z86.16 Personal history of COVID-19; Z82.49 Family history of ischemic heart disease and other diseases of the circulatory system
CPT/HCPCS: 43249; 45378 ×2; 36415; 71275; 74174; 78452; 80048; 80053; 80061; 81003; 83036; 83690; 83735; 83880; 84484; 85025; 85610; 85730; 93005; 93017; 93306; 96374; 96375; 99285; A9270; A9502; C1726; G0378; J2371; J2405; J2704; J2785; J7120; Q9967

== ENCOUNTER 2023-11-04 12:45 | Outpatient (CLI) | payer MEDICARE, SELFPAY ==
--- NOTE | ~2023-11-04 | MM_ITS ---
EXAMINATION: MM screening clinton RT w carolyn HISTORY: Screening TECHNIQUE: Craniocaudal and mediolateral oblique 3-D tomosynthesis images were obtained and synthetic 2-D images were generated. CAD analysis was submitted and interpreted. COMPARISON: Comparison to multiple prior studies sequentially, with oldest reviewed study dated 04/19. BREAST PARENCHYMAL COMPOSITION: Breast composition is almost entirely fatty FINDINGS: There is no evidence of suspicious mass, calcification, or architectural distortion to sugg est malignancy in the right breast. There has been no suspicious interval change. IMPRESSION: 1. No mammographic evidence of malignancy of the right breast. 2. Recommend routine screening mammography in one year. BI-RADS Category 1: Negative Reviewed, dictated and finalized at location A. [employer]
--- NOTE | ~2023-11-04 | DEXA_ITS ---
Bone Density Report Name: SARAN THOMSA Age: 78 Sex: Female Ethnicity: White Date of : 1945 Indication: postmenopausal; screening for osteoporosis; height loss; inflammatory bowel disease; hysterectomy; Referring Provider: SYD MORA Study: Bone densitometry was performed. Exam Date: November 04, 2023 Accession number: [id number] Bone Density: Region BMD T-score Z-score Classification AP Spine(L1, L2, L3) 1.095 0.7 3.2 Normal Femoral Neck (Left) 0.675 -1.6 0.7 Osteopenia Total Hip (Left) 0.835 -0.9 1.1 Normal Femoral Neck (Right) 0.715 -1.2 1.0 Osteopenia Total Hip (Right) 0.770 -1.4 0.6 Osteopenia Total Hip Mean 0.803 -1.2 0.9 Osteopenia World Health Organization criteria for BMD impression classify patients as: Normal (T-score at or above -1.0), Osteopenia (T-score between -1.0 and -2.5), or Osteoporosis (T-score at or below -2.5). 10-year Fracture Risk(1): Major Osteoporotic Fracture 12% Hip Fracture 2.5% Reported Risk Factors: [place] (), Neck BMD=0.675, BMI=39.2 (1) FRAX(R) Version 3.08. Fracture probability calculated for an untreated patient. Fracture probability may be lower if the patient has received treatment. Clinical Information Provided by Patient: Has used the following medications: Vitamin D, Calcium Has the following medical conditions: Inflammatory bowel diseases, Hysterectomy Patient maximum height was 67.5 Menopause Age: 45 Drinks caffeinated beverages Onset of menses at age 12 Number of children 4 Impression: The patient has low bone mass, based on the Left Femoral Neck T-score. The patient has an estimated ten-year risk of hip fracture of 2.5% and an estimated ten-year risk of major fracture of 12%, based on the WHO FRAX algorithm. Discussion: BONE DENSITY IS LOW AT ONE OR MORE SKELETAL SITES. This patient's lowest T-score is low at one or more skeletal sites. It meets the World Health Organization's (WHO) criteria for ?low bone mass? (T-score between -1.0 and -2.5). The patient's 10-year risk of fracture as calculated by FRAX is less than the threshold where pharmacological therapy is recommended by the National Osteoporosis Foundation (NOF). However, all treatment decisions require clinical judgment and consideration of individual patient factors, including patient preferences, comorbidities, previous drug use, risk factors not captured in the FRAX model (e.g., frailty, falls, vitamin D deficiency, increased bone turnover, interval significant decline in bone density) and possible under or overestimation of fracture risk by FRAX. The patient should follow a healthful lifestyle (good nutrition with adequate calcium and vitamin D, and appropriate weight-bearing exercise). Follow-Up: Consider repeating this study in 2 to 3 years to re
== END 2023-11-04 12:46 | disposition home or self-care (01) ==
LOC: ANHIMG 12:47
PROVIDERS: PCP Family Medicine; Visit Provider Physician Assistant
DX: Z12.31 Encounter for screening mammogram for malignant neoplasm of breast (principal); M85.89 Other specified disorders of bone density and structure, multiple sites; Z78.0 Asymptomatic menopausal state
CPT/HCPCS: 77063; 77067; 77080

== ENCOUNTER 2025-07-07 09:21 | Outpatient (CLI) | payer MEDICARE, SELFPAY ==
--- NOTE | ~2025-07-07 | MM_ITS ---
EXAMINATION: MM screening [facility] BI w carolyn HISTORY: Screening TECHNIQUE: Craniocaudal and mediolateral oblique 3-D tomosynthesis images were obtained and synthetic 2-D images were generated. CAD analysis was submitted and interpreted. COMPARISON: Comparison to multiple prior studies sequentially, with oldest reviewed study dated 05/06. BREAST PARENCHYMAL COMPOSITION: Not Dense: The breasts are almost entirely fatty. FINDINGS: There is no evidence of suspicious mass, calcification, or architectural distortion to sugg est malignancy in either breast. There has been no suspicious interval change. IMPRESSION: 1. No mammographic evidence of malignancy. 2. Recommend routine screening mammography in one year. BI-RADS Category 1: Negative Reviewed, dictated and finalized at location A.
--- OUTSIDE RECORDS SUMMARY | 2025-07-07 09:31 | XMS_ITS | Clinical Summary ---
Author Organization [facility] Address [address] [place] [id number] Care Team Providers Care Bag Checker Name Role Phone Unavailable Primary Care Provider Unavailabl e Social History Tobacco Use Types Packs/Day Years Used Date Smoking Tobacco: Never Assessed Comments Unknown Sex and Gender Information Value Date Recorded Sex Assigned at Not on file Legal Sex Female 5:39 PM CDT Gender Identity Not on file Sexual Orientation Not on file Plan of Treatment Health Maintenance Due Date Last Done Comments DTaP, Tdap and Td Vaccines ( 1 - Tdap) 1964 Pneumococcal Vaccine: 50+ Ye ars (1 of 1 - PCV) 1995 Zoster Vaccines (1 of 2) 1995 Dexa Scan (General) 2010 RSV Immunization or 60+ Years (1 - 1-dose 75+ series) 2020 COVID-19 Vaccine (2023-2 5 season) 2024 Meningococcal B Vaccine Aged Out No l onger eligible based on patient's age to complete this topic Meningococcal Vaccine Aged Out No humphrey gagan eligible based on patient's age to complete this topic RSV Immunizations Under 20 Months Aged Out No longer eligible based on patient's age to complete this topic
--- OUTSIDE RECORDS SUMMARY | 2025-07-07 09:31 | XMS_ITS | Clinical Summary ---
Author Organization [facility] Address [address] [place] [address] Care Team Providers Care Drapery Cutter Machine Name Role Phone Gurdeep Montiel MD Primary Care Provider [phone] Allergies Active Allergy Reactions Criticality Noted Date Comments Codeine Hallucinations Medium 10/09/2018 Medications verapamil SR (CALAN SR) 240 mg CR tablet Take 1 tablet (240 mg total) by mouth marina porter before breakfast Active oxybutynin XL (DITROPAN-XL) 5 mg 24 hr tablet Take 1 tablet (5 mg total) by mouth 2 (two) times a day Active losartan (COZAAR) 100 mg tabletIndicatio ns:hypertension Take 1 tablet (100 mg total) by mouth marina porter before breakfast Active pravastatin (PRAVACHOL) 20 mg tabletIndicatio ns:coronary artery disease Take 1 tablet (20 mg total) by mouth marina porter before breakfast Active traZODone (DESYREL) 50 mg tablet Take 1 tablet (50 mg total) by mouth nightly Active rOPINIRole (REQUIP) 1 mg tablet Take 1 tablet (1 mg total) by mouth nightly Active celecoxib (CeleBREX) 200 mg capsuleIndicati ons:Osteoarthri tis Take 1 capsule (200 mg total) by mouth marina porter before breakfast 4 Active citalopram (CeleXA) 10 mg tabletIndicatio ns:Anxiety with Depression Take 1 tablet (10 mg total) by mouth 2 (two) times a day [address] (PROTONIX) 40 mg EC tablet Take 1 tablet (40 mg total) by mouth marina porter before breakfast 4 Active tiZANidine (ZANAFLEX) 4 mg tablet Take 1 tablet (4 mg total) by mouth nightly 4 Active multivit-min/fo lic acid/vit K1 (MULTI FOR HER 50 PLUS ORAL) Take 2 tablet/chew tab by mouth marina porter before breakfast Active calcium carbonate-vitam in D3 1,250 mg (500 mg elemental)-400 unit chewable tablet Take 1 tablet by mouth daily Active indapamide (LOZOL) 1.25 mg tablet Take 1 tablet (1.25 mg total) by mouth every morning Active docusate sodium (COLACE) 100 mg capsuleIndicati ons:constipatio n Take 1 capsule (100 mg total) by mouth 2 (two) times a day 4 Active aspirin 81 mg enteric coated tabletIndicatio ns:Deep Vein Thrombosis Prevention Take 1 tablet (81 mg total) by mouth 2 (two) times a day And then resume daily dosing 4 Active acetaminophen 500 mg capsuleIndicati ons:Pain Take 2 capsules (1,000 mg total) by mouth every 6 (six) hours 4 Active oxyCODONE (ROXICODONE) 5 mg immediate release tabletIndicatio ns:Pain Take 1 tablet (5 mg total) by mouth every 6 (six) hours as needed for pain 40 tablet 4 Active Active Problems Problem Noted Date Diagnosed Date Rotator cuff arthropathy of right shoulder 04/02 Nontraumatic incomplete tear of right rotator cu ff 04/02/2024 Hypertension 03/25/2024 Hyperlipidemia 03/25/2024 Diastolic dysfunction 03/25/2024 At risk for obstructive sleep apnea 03/25/2024 Class 2 obesity in adult 03/25/2024 Osteoarthritis of right shoulder 02/27/2024 Surgical History Surgery Date Site/Laterality Comments LAPAROSCOPIC ROSALBA FUNDOPLICATION 02/23/2018 BACK SURGERY KNEE SURGERY CHOLECYSTECTOMY LAPAROSCOPIC ROSALBA FUNDOPLICATION INGUINAL HERNIA REPAIR Medical History Medical History Date Comments Dysphagia GERD (gastroesophageal reflux disease) HTN (hypertension) Arthritis Migraine GERD (gastroesophageal reflux disease) Dysphagia Family History Medical History Relation Name Comments Anesthesia problems Neg Hx Social History Tobacco Use Types Packs/Day Years Used Date Smoking Tobacco: Never Passive Smoke Exposure: Past Smokeless Tobacco: Never Tobacco Cessation:Counseling Given: Not Answered [facility] Utilities Answer Date Recorded In the past 12 months has th e electric, gas, oil, or water company threatened to shut off services in your home? No 04/02/2024 AUDIT-C Answer Date Recorded Q1: How often do you have a drink containing alc ohol? Monthly or less 04/02/2024 Q2: How many drinks containi ng alcohol do you have on a typical day when you are drinking? 1 or 2 04/02/2024 Q3: How often do you have si x or more drinks on one occasion? Never 04/02/2024 Overall Financial Resource Strain (CARDIA) Answe r Date Recorded How hard is it for you to pa y for the very basics like food, housing, medical care, and heating? Not hard at all 04/02/2024 Hunger Vital Sign Answer Date Recorded Within the past 12 months, y ou worried that your food would run out before you got the money to buy more. Never true 04/02/20 24 Within the past 12 months, t he food you bought just didn't last and you didn't have money to get more. Never true 04/02/2024 PRAPARE - Transportation Answer Date Re corded In the past 12 months, has l ack of transportation kept you from medical appointments or from getting medications? No 07/2024 In the past 12 months, has l ack of transportation kept you from meetings, work, or from getting things needed for daily living? No 04/02/2024 Housing Stability Vital Sign Answer Rajan e Recorded In the last 12 months, was t here a time when you were not able to pay the mortgage or rent on time? No 04/02/2024 In the last 12 months, how many places have you lived? 1 04/02/2024 In the last 12 months, was t here a time when you did not have a steady place to sleep or slept in a chcf (including now)? No 04/02/2024 Personal Safety Answer Date Recorded Have you ever been in or are you currently in a harmful physical or emotional relationship or is someone making you feel afraid or unsafe? 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[employer] Gender Identity Not on file Sexual Orientation Not on file Obstetrics History Last Filed Vital Signs Vital Sign Reading Time Taken Comments Blood Pressure 103/63 04/06/2024 12:06 PM CDT Pulse 83 04/06/2024 12:06 PM CDT Temperature 37.1 C (98.8 F) 04/06/2024 12:06 PM CDT Respiratory Rate 18 04/06/2024 12:06 PM CDT Oxygen Saturation 91% 04/06/2024 12:06 PM CDT Inhaled Oxygen Concentration - - Weight 99.8 kg (220 lb) 04/05/2024 9:40 PM CDT Height 165.1 cm (5' 5) 04/05/2024 9:40 PM CDT Body Mass Index 36.61 04/05/2024 9:40 PM CDT Plan of Treatment Health Maintenance Due Date Last Done Comments Depression Screening 1945 Osteoporosis Screening-Bone Density Scan 1945 DTaP/Tdap/Td Vaccine (1 - Tdap) 1956 Hepatitis B Screening 1963 Well Visit 65+ 2010 Pneumococcal vaccine 65+ (2 of 2 - PCV20 or PCV21) 10/12/2017 10/12/2016 Covid-19 Vaccine (6 - 2023-2 5 season) 2024 12/03/2023, 09/09/2022, 10/26/2021, Additional history exists Fall Risk Assessment 04/06/2025 04/06/2024 Influenza Vaccine (#1) 2025 , 09/09/2022, 10/09/2021, Additional history exists Zoster Vaccine Completed 12/12/2020, 12/2019, 10/14/2012 Medical Devices Implanted Type Area Blood Bank Laboratory Professional Device Identifier Shelf Expiration Date Model / Serial / Lot Spinal Cord Stimulator Spinal Cord Stimulator Left: Back Patella Bilateral: Knee [employer] Real[employer] Aequalis Perform Reversed 5mm 26mm Peripheral Glenoid Screw [id number] - [id number] Implanted:Qty : 1 on 04/02/2024 at [facility] Right: Shoulder [employer] Real[employer] [id number] / / Visual Realm Insert Humeral Symmetric Reverse Size 1/2 Perform +3x36mm [id number] - [id number] - [id number] Implanted:Qty : 1 on 04/02/2024 at [facility] Right: Shoulder [employer] 12/21/2026 [id number] / [id number] / [employer] Od25 Mm Full Wedge Augment Shoulder 15 D Baseplate Glenoid [id number] - [id number] Implanted:Qty : 1 on 04/02/2024 at [facility] Right: Shoulder [employer] 01/08/2029 [id number] / [id number] / [employer] Tray Stem Humeral Shoulder Reverse Long Size 2 Plus Perform [id number] - [id number] Implanted:Qty : 1 on 04/02/2024 at [facility] Right: Shoulder [employer] 12/04/2028 [id number] / [id number] / [employer] Tornier Aequalis Perform 36mm Reverse Shoulder Standard Sphere [id number] - [id number] Implanted:Qty : 1 on 04/02/2024 at [facility] Right: Shoulder [employer] 01/29/2029 [id number] / [id number] / [employer] Aequalis Perform Reversed Od6.5 Mm L30 Mm Central Glenoid Screw Baseplate Nonsterile [id number] - [id number] Implanted:Qty : 1 on 04/02/2024 at [facility] Right: Shoulder [employer] [id number] / / [employer] Aequalis Perform Reversed 5mm 22mm Peripheral Glenoid Screw [id number] - [id number] Implanted:Qty : 1 on 04/02/2024 at [facility] Right: Shoulder [employer] [id number] / / [employer] Aequalis Perform Reversed 5mm 18mm Peripheral Glenoid Screw [id number] - [id number] Implanted:Qty : 2 on 04/02/2024 at [facility] Right: Shoulder [employer] [id number] / / Insurance [facility] MEDICARE ADVANTAGE Member Subscriber Plan / Payer (Ef fective 2023-Present) Name:Amber Ordaz Relation to Subscriber:Self Name:Amber Ordaz Payer ID:[id number] (NAIC) Type:[employer]HC MEDICARE Address: [place] [id number] [employer] MEDICARE ADVANTAGE Member Subscriber Plan / Payer (Ef fective 2023-Present) Name:Amber Ordaz Relation to Subscriber:Self Name:Amber Ordaz Payer ID:[id number] (NAIC) Type:[employer]HC MEDICARE Address: [place] [id number] Advance Directives For more information, please contact: [phone] * Full Code (Latest Code Status on File) Date Activated Date Inactivated Comments 04/02/2024 2:00 PM 04/06/2024 7:02 PM Care Teams Drapery Cutter Machine Relationship Specialty Start Date End Date Gurdeep Montiel MD [address] [place] [address] [place] [address] PCP - General 01/09/18
== END 2025-07-07 09:22 | disposition home or self-care (01) ==
LOC: ANHIMG 09:24
PROVIDERS: PCP Family Medicine; Visit Provider Family Medicine
DX: Z12.31 Encounter for screening mammogram for malignant neoplasm of breast (principal)
CPT/HCPCS: 77063; 77067